=== PATIENT | female | born 1965 | race Caucasian/White ===

== ENCOUNTER 2020-01-19 14:51 | Outpatient (REF) | payer OTHER, SELFPAY ==
[2020-01-25 21:37] LABS: HPV mRNA E6/E7 Not Detected (Not Detected)
== END 2020-01-19 14:52 | disposition home or self-care (01) ==
LOC: HO.LNP 14:51
PROVIDERS: PCP Internal Medicine; Referring Provider Internal Medicine; Visit Provider Obstetrics & Gynecology
DX: Z01.419 Encounter for gynecological examination (general) (routine) without abnormal findings (principal); Z11.51 Encounter for screening for human papillomavirus (HPV); R87.810 Cervical high risk human papillomavirus (HPV) DNA test positive
CPT/HCPCS: 87624; 87625; 88142

== ENCOUNTER 2020-01-19 17:53 | Outpatient (REF) | payer OTHER, SELFPAY | END 2020-01-19 17:54 | disposition home or self-care (01) | LOC: HO.LNP 17:53 | PROVIDERS: Visit Provider Obstetrics & Gynecology | DX: Z13.89 Encounter for screening for other disorder (principal) ==

== ENCOUNTER 2020-02-03 11:41 | Outpatient (REF) | payer OTHER, SELFPAY ==
--- NOTE | 2020-02-03 11:47 | MM_ITS ---
EXAMINATION: MM SCREENING DIGITAL BREAST TOMOSYNTHESIS, BILATERAL CLINICAL INFORMATION: Screening. Asymptomatic. The lifetime risk of breast cancer based on the Tyrer-Cuzick Model is 9%. COMPARISON: Mammography: 02/26/2018, 12/14/2015, 01/20/2013 TECHNIQUE: Digital breast tomosynthesis is performed in both the craniocaudal and mediolateral oblique views along with computer-aided detection (CAD). Synthesized 2D images are generated from the tomosynthesis. FINDINGS: There are scattered areas of fibroglandular density (ACR BI-RADS breast composition Category b). Breast tissue composition borders on heterogeneously dense. The right breast shows no interval mass or architectural abnormality or developing density. Neither breast shows abnormal calcifications. The bilateral axilla and skin contours are unremarkable. The left MLO view has small asymmetric density lower quadrant, 6.3 cm from the nipple. There is no correlate on CC view. Patient will be recalled for additional imaging. MM/MM tomosynthesis screening BI IMPRESSION: 1. Left: Small asymmetric density lower quadrant on MLO view. 2. Right: No mammographic evidence of malignancy. ASSESSMENT: BI-RADS 0: Incomplete - Need Additional Imaging Evaluation RECOMMENDATION: 1. Additional views of the left breast (spot MLO, standard ML). 2. Targeted ultrasound if warranted after review of the additional views. 3. Radiology department staff will contact the patient for additional imaging. This patient's information was entered into a reminder system with a target due date for their next mammogram.
== END 2020-02-03 11:42 | disposition home or self-care (01) ==
LOC: HO.MAMMO 11:41
PROVIDERS: Visit Provider Obstetrics & Gynecology
DX: Z12.31 Encounter for screening mammogram for malignant neoplasm of breast (principal)
CPT/HCPCS: 77063; 77067

== ENCOUNTER 2020-02-10 13:27 | Outpatient (REF) | payer OTHER, SELFPAY ==
--- NOTE | 2020-02-10 13:31 | MM_ITS ---
EXAMINATION: MM DIAGNOSTIC DIGITAL BREAST TOMOSYNTHESIS, LEFT US BREAST TARGETED, LEFT CLINICAL INFORMATION: Density deep inferior aspect of the left breast. COMPARISON: Mammography: 02/03/2020 and cases dating back to 12/05/2011. TECHNIQUE: Digital breast tomosynthesis is performed. 2D images are generated from the tomosynthesis. The following views are obtained: Spot compression mediolateral oblique and 90 degree mediolateral views of the left breast. Targeted ultrasound inferior aspect of the left breast. FINDINGS: The breasts are heterogeneously dense, which may obscure small masses (ACR BI-RADS breast composition Category c). Additional views show no significant mass, architectural abnormality, or abnormal calcifications. Targeted ultrasound evaluation inferior aspect of the left breast did not demonstrate any abnormal cystic or solid mass. No region of abnormal distal sound shadowing. Results are discussed with the patient at time of visit. MM/MM tomosynthesis added views L IMPRESSION: No mammographic or ultrasound findings to suggest malignancy of the left breast. ASSESSMENT: BI-RADS 1: Negative RECOMMENDATION: Routine annual mammography screening due in 12 months. This patient's information was entered into a reminder system with a target due date for their next mammogram.
== END 2020-02-10 13:28 | disposition home or self-care (01) ==
LOC: HO.MAMMO 13:27
PROVIDERS: Visit Provider Obstetrics & Gynecology
DX: R92.8 Other abnormal and inconclusive findings on diagnostic imaging of breast (principal)
CPT/HCPCS: 76641; 77061; 77065

== ENCOUNTER 2020-02-15 08:43 | Outpatient (REF) | payer OTHER, SELFPAY | END 2020-02-15 08:44 | disposition home or self-care (01) | LOC: HO.LNP 08:43 | PROVIDERS: Visit Provider Obstetrics & Gynecology | DX: Z30.432 Encounter for removal of intrauterine contraceptive device (principal); A42.9 Actinomycosis, unspecified | CPT/HCPCS: 87071; 87073; 87185; 87205 ==

== ENCOUNTER 2020-02-21 16:01 | Outpatient (REF) | payer OTHER, SELFPAY | END 2020-02-21 16:02 | disposition home or self-care (01) | LOC: HO.LAB 16:01 | PROVIDERS: Visit Provider Internal Medicine | DX: Z20.828 Contact with and (suspected) exposure to other viral communicable diseases (principal) | CPT/HCPCS: C9803; U0003 ==

== ENCOUNTER 2020-02-23 14:24 | Outpatient (REF) | payer OTHER, SELFPAY ==
--- NOTE | 2020-02-23 | XR_ITS ---
EXAMINATION: BILATERAL KNEE RADIOGRAPHS. CLINICAL INFORMATION: Knee pain after running. COMPARISON: Hip radiograph's on 12/18/2009 TECHNIQUE: AP lateral and oblique views of each knee. FINDINGS: Right knee: The bones are normally mineralized. No acute fracture or dislocation identified. No suprapatellar effusion. There is trace tricompartmental degenerative change with marginal osteophyte formation. No suspicious osseous lesions. Left knee: The bones are normally mineralized. No acute fracture or dislocation identified. No suprapatellar effusion. There is trace tricompartmental degenerative change with marginal osteophyte formation. No suspicious osseous lesions. XR/XR knee RT 4V IMPRESSION: No evidence of acute fracture or dislocation. Mild bilateral degenerative changes.
--- NOTE | 2020-02-23 | XR_ITS ---
EXAMINATION: BILATERAL KNEE RADIOGRAPHS. CLINICAL INFORMATION: Knee pain after running. COMPARISON: Hip radiograph's on 12/18/2009 TECHNIQUE: AP lateral and oblique views of each knee. FINDINGS: Right knee: The bones are normally mineralized. No acute fracture or dislocation identified. No suprapatellar effusion. There is trace tricompartmental degenerative change with marginal osteophyte formation. No suspicious osseous lesions. Left knee: The bones are normally mineralized. No acute fracture or dislocation identified. No suprapatellar effusion. There is trace tricompartmental degenerative change with marginal osteophyte formation. No suspicious osseous lesions. XR/XR knee LT 4V IMPRESSION: No evidence of acute fracture or dislocation. Mild bilateral degenerative changes.
--- NOTE | 2020-02-23 15:03 | US_ITS ---
EXAMINATION: ULTRASOUND OF THE PELVIS CLINICAL INFORMATION: Pelvic and perineal pain. Recent IUD removal. COMPARISON: 04/26/2010. TECHNIQUE: Transabdominal and transvaginal pelvic ultrasound. A transvaginal study was performed in addition to the transabdominal study which did not yield an adequate examination of the uterus and ovaries due to superimposed distended gas-filled loops of bowel. FINDINGS: The uterus is normal in size and appearance, measuring 7.7 x 3.6 x 5.1 cm longitudinally, anteroposteriorly and transversely. The endometrial stripe thickness is normal, measuring 1.1 cm in thickness. No focal myometrial mass is seen. Nabothian cysts noted at the cervix. The ovaries bilaterally are visualized and appear normal, with the right ovary measuring 1.7 x 1.2 x 1.7 cm and the left ovary measuring 2.5 x 1.5 x 2 cm. No adnexal mass or free fluid collection seen. US/US pelvic complete IMPRESSION: Somewhat prominent endometrium may be correlated with phase of cycle. Otherwise no focal abnormality identified.
--- NOTE | 2020-02-23 15:03 | US_ITS ---
EXAMINATION: ULTRASOUND OF THE PELVIS CLINICAL INFORMATION: Pelvic and perineal pain. Recent IUD removal. COMPARISON: 04/26/2010. TECHNIQUE: Transabdominal and transvaginal pelvic ultrasound. A transvaginal study was performed in addition to the transabdominal study which did not yield an adequate examination of the uterus and ovaries due to superimposed distended gas-filled loops of bowel. FINDINGS: The uterus is normal in size and appearance, measuring 7.7 x 3.6 x 5.1 cm longitudinally, anteroposteriorly and transversely. The endometrial stripe thickness is normal, measuring 1.1 cm in thickness. No focal myometrial mass is seen. Nabothian cysts noted at the cervix. The ovaries bilaterally are visualized and appear normal, with the right ovary measuring 1.7 x 1.2 x 1.7 cm and the left ovary measuring 2.5 x 1.5 x 2 cm. No adnexal mass or free fluid collection seen. US/US transvaginal IMPRESSION: Somewhat prominent endometrium may be correlated with phase of cycle. Otherwise no focal abnormality identified.
== END 2020-02-23 14:25 | disposition home or self-care (01) ==
LOC: HO.HMGCX 14:24
PROVIDERS: Referring Provider Physician Assistant; Visit Provider Obstetrics & Gynecology
DX: M25.562 Pain in left knee (principal); M25.561 Pain in right knee; R10.2 Pelvic and perineal pain; A42.9 Actinomycosis, unspecified
CPT/HCPCS: 73564; 76830; 76856

== ENCOUNTER → 2020-03-05 14:36 | Outpatient (BNVA) | payer OTHER, SELFPAY | PROVIDERS: Visit Provider Advanced Practice Midwife | DX: Z76.89 Persons encountering health services in other specified circumstances (principal) ==

== ENCOUNTER → 2020-03-09 12:02 | Outpatient (BNVA) | payer OTHER, SELFPAY | PROVIDERS: Visit Provider Nurse Practitioner Family | DX: Z76.89 Persons encountering health services in other specified circumstances (principal) ==

== ENCOUNTER → 2020-05-11 08:28 | Outpatient (REF) | payer OTHER, SELFPAY ==
--- NOTE | 2020-05-11 08:30 | CA_ITS ---
Acquisition Time: 2020-05-11 08:42:22 Total Exercise Time: 00:10:00 Test Indications: Abnormal ECG Medications: SEE CHART Protocol: MEGAN Max HR: 166 BPM 98% of Pred: 168 BPM Max BP: 138/068 mmHG Max Work Load: 11.7 METS Exercise stress test with exercise 10 min of Megan protocol, without anginal symptoms, with isolated PVC, with normotensive response to exercise, without EKG changes meeting criteria for ischemia. Test reviewed with Dr Valdivia. Referred By: Savanna Dugan Overread By: REVA SIERRA
== END ==
LOC: HO.CARD 08:28
PROVIDERS: Visit Provider Physician Assistant
DX: R00.2 Palpitations (principal)
CPT/HCPCS: 93017

== ENCOUNTER → 2020-05-14 07:19 | Outpatient (REF) | payer OTHER, SELFPAY ==
--- NOTE | 2020-05-14 07:23 | CA_ITS ---
Transthoracic Echocardiogram Patient (Last, First, Middle): Jazz Mcfarlane Marie Gender: Female Date of : 1965 Age: 54 Procedure Date: 05/14/2020 Procedure Type: Transthoracic Echocardiogram Location: OP Height: 154.94 cm Weight: 68.04 kg BSA: 1.67 m2 Heart Rate: bpm BP: 115 / 60 mmHg [employer] Et[employer] Developer: SCOT Referring MD: Savanna MARTÍNEZ Symptoms: PALPITATIONS Study Quality: Fair ECG Rhythm: Sinus Conclusions: - The left ventricular systolic function is normal. The visually estimated ejection fraction is between 55-60%. - No obvious valvular pathology seen on this study. Findings Left Ventricle Normal left ventricular cavity size. There is normal left ventricular wall thickness. The left ventricular systolic function is normal. The visually estimated ejection fraction is between 55-60%. There is no evidence of regional wall motion abnormalities. Diastolic function is normal for age. Right Ventricle Normal right ventricular cavity size and systolic function. Atria Both atria are normal in size. Aortic Valve There is a normal trileaflet aortic valve. There is no aortic valve stenosis. There is no aortic valve regurgitation. Mitral Valve The mitral valve appears normal. There is trace mitral valve regurgitation. There is no mitral valve stenosis. Pulmonic Valve The pulmonic valve was not well visualized. Tricuspid Valve There is trace tricuspid valve regurgitation. The pulmonary artery systolic pressure is normal. Great Vessels The aortic annulus, sinuses of valsalva, and asc aorta are normal in size. Venous The inferior vena cava is normal in size and collapses greater than 50% with inspiration. Pericardium/Pleural There is no evidence of pericardial effusion. Prior Study Comparison No significant change compared to prior study dated: 04/16/2007. Recommendations, Care & Conclusions No obvious valvular pathology seen on this study. Measurements 2D Linear Measurements IVSd: 0.77 0.6-0.9/0.6-1.0 cm LVIDd: 4.65 3.9-5.3/4.2-5.9 cm LVIDd Index: 2.78 2.4-3.2/2.2-3.1 cm/m2 LVIDs: 2.89 2.0-3.6 cm LVPWd: 0.75 0.7-1.1 cm Ao Root: 3.00 2.1-3.5 cm LA Diam: 3.40 2.7-3.8/3.0-4.0 cm LAIDs Index: 2.04 1.5-2.3 cm/m2 LV Mass: 140.31 67-162/88-224 g LV Mass Index: 84.02 43-95/49-115 g/m2 LVOT Diam: 2.00 3.0+(-)1.3 cm 2D Systolic Function EF 4C: 56.40 >55% EF 2C: 63.50 >55% EF BiP: 60.10 >55% Mitral Valve MV Pk E: 0.94 MV PK A: 0.61 MV Decel Time: 269.00 E/A: 1.60 E'Lateral: 11.00 E'Medial: 11.60 E/E' Med: 8.10 E/E' Lat: 8.60 PHT: 79.00 MVA PHT: 2.78 Decel Bladen: 3.50 Aortic Valve AoV Pk Alejandro: 1.24 AoV Mn Alejandro: 0.86 AoV VTI: 0.31 AoV Pk Grad: 6.00 Aov Mn Grad: 3.00 ALFONSO Cont.VTI: 2.65 LVOT LVOT Pk Alejandro: 1.10 LVOT Mn Aljeandro: 0.69 LVOT VTI: 0.26 LVOT Pk Grad: 5.00 LVOT Mn Grad: 2.00 LVOT Diam: 2.00 LVOT Area: 3.14 Diastolic Function MV Pk E: 0.94 MV Pk A: 0.61 E/A: 1.60 E'Medial: 11.60 E/E' Med: 8.10 E' Laterial: 11.00 E/E' Lat: 8.60 Tricuspid Valve TR Pk Alejandro: 2.01 TR Pk Grad: 16.00 RA Press: 3.00 RVSP: 19.00 Great Vessels Aorta Ao Root-2D: 3.00 2.0-3.7 cm Ao Asc: 3.00 2.1-3.4 cm Ao Arch: 2.60 Updated in Other Vendor System with Status of Final Ezekiel Valdivia MD electronically signed on 05/15/2020 3:22:16 PM with status of Final
== END ==
LOC: HO.CARD 07:19
PROVIDERS: Visit Provider Physician Assistant
DX: R00.2 Palpitations (principal)
CPT/HCPCS: 93306

== ENCOUNTER 2020-05-18 06:55 | Day surgery (SDC) | payer OTHER, SELFPAY ==
--- NOTE | 2020-05-16 14:31 | P.CONAN_ITS ---
Documented by User: Constanza An 05/16/20 14:40 HPI - Anesthesia Eval Consult details Narrative: 54yo F for Colonoscopy PMFSH Active Problems Active Problems: All Active Problems (Updated 05/14/20 @ 12:49 by Aparna Walker) Abnormality of left breast on screening mammogram (Acute) Thickened endometrium (Acute) Past Medical History Medical History History of LEEP (loop electrosurgical excision procedure) of cervix complicating History of melanoma Hx of cardiac arrhythmia Remove/insert IUD Family History Family History Father Stroke Pulmonary fibrosis Mother Stroke Heart attack Surgical History Surgical History History of surgery on wrist Social History Social History Are you a primary housekeeper caregiver to a significant other at home: No Do you presently have visiting nurse or other home services: No Alcohol intake: current Alcohol intake frequency: a few times a month Alcohol type: beer and wine Smoking Status: Former smoker Smoked in Last 30 Days: No Smoking Quit Date: 30 years ago Use of substances other than those prescribed or required for medical reasons: No Advance Directives: No Advance Directives Information Provided: Yes Sexual orientation: Straight/Heterosexual Gender identity: female Meds Allergies Allergy/AdvReac Type Severity Reaction Status Date / Time No Known Allergies Allergy Verified 05/14/20 12:33 Home Medications Medication Instructions Recorded Confirmed Last Taken Type levonorgestrel 20 mcg/24 hours (6 INTRAUTERINE 01/19/20 03/09/20 Unknown History yrs) 52 mg intrauterine device fluticasone propionate 1 spray INTRANASAL DAILY 05/14/20 05/14/20 Unknown History Exam Exam Date and Time: May 16, 2020 143 Narrative Narrative: EKG 05/07/20 NSR with SA Exercise Stress 05/11/20 Protocol: HANY Max HR: 166 BPM 98% of Pred: 168 BPM Max BP: 138/068 mmHG Max Work Load: 11.7 METS Exercise stress test with exercise 10 min of Hany protocol, without anginal symptoms, with isolated PVC, with normotensive response to exercise, without EKG changes meeting criteria for ischemia. Test reviewed with Dr Valdivia. ECHO 05/14/20 Conclusions: - The left ventricular systolic function is normal. The visually estimated ejection fraction is between 55-60%. - No obvious valvular pathology seen on this study. Assessment and Plan Assessment Anesthesia Assessment: Chart Reviewed Documented by User: Peg Taylor 05/18/20 07:49 [facility] Past Medical History Medical History History of LEEP (loop electrosurgical excision procedure) of cervix complicating History of melanoma Hx of cardiac arrhythmia Remove/insert IUD Family History Family History Father Stroke Pulmonary fibrosis Mother Stroke Heart attack Surgical History Surgical History History of surgery on wrist Social History Social History Are you a primary housekeeper caregiver to a significant other at home: No Do you presently have visiting nurse or other home services: No Alcohol intake: current Alcohol intake frequency: a few times a month Alcohol type: beer and wine Smoking Status: Former smoker Smoked in Last 30 Days: No Smoking Quit Date: 30 years ago Use of substances other than those prescribed or required for medical reasons: No Advance Directives: No Advance Directives Information Provided: Yes Sexual orientation: Straight/Heterosexual Gender identity: female Meds Allergies Allergy/AdvReac Type Severity Reaction Status Date / Time No Known Allergies Allergy Verified 05/14/20 12:33 Home Medications Medication Instructions Recorded Confirmed Last Taken Type levonorgestrel 20 mcg/24 hours (6 INTRAUTERINE 01/19/20 03/09/20 Unknown History yrs) 52 mg intrauterine device fluticasone propionate 1 spray INTRANASAL DAILY 05/14/20 05/14/20 Unknown History Exam Airway Mallampati Class: II TM Dist: >3cm Neck ROM: Full Assessment and Plan Assessment Anesthesia Assessment: Anesthesia Plan Discussed and Chart Reviewed Final Anesthetic Review NPO: Yes ASA Class: II Final Preanesthetic Review: No Changes in Pt Med Stat, Meds/Allgs Chart Reviewed, Consent Obtained/Reviewed and Anes Risks/Benef Reviewed Patient Risk: Low Procedure Risk: Low Assessment/Block/Sedation in SS: Assess/Block/Sedation-SS Anesthetic Plan Anesthetic Plan: MAC: and Regional Block
[2020-05-18 07:11] VITALS: BMI 27.8
--- NOTE | 2020-05-18 07:42 | P.OP_ITS ---
Operative Note Operative Note Date of Service: 05/18/20 Narrative: Pre-op diagnosis: Colon cancer screening Post-op diagnosis: other (colon polyps, diverticulosis) Procedure: COLONOSCOPY TILL CECUM WITH BIOPSY AND SNARE POLYPECTOMY Consent: Indications for the procedure and potential complications of bleeding, perforation, reaction to medications and missed diagnosis were discussed with the patient and informed consent was obtained. Instrument: Olympus PCF H 190 L variable stiffness pediatric colonoscope Monitoring: Vital signs and clinical assessment, intermittent blood pressure monitoring, continuous EKG monitoring, Pulse oximetry and Carbon Dioxide monitoring were done throughout the procedure. Colon withdrawl time was 21 minutes. Procedure: The patient was placed in the left lateral decubitis position and pre-procedure medications were administered. After a digital rectal examination of the ano-rectum, the video colonoscope was inserted into the rectum and advanced through the colon to the cecum. The colonoscope was slowly withdrawn in a retrograde panoramic fashion and the colon mucosa was carefully examined including a retroflexed view of the rectum. Findings and interventions are described below. Procedure Difficulty: Without difficulty Findings: Terminal Ileum: Not evaluated Cecum: Normal Ascending Colon: A 4-5 mm diminutive appearing polyp in distal AC removed with a cold bx. Transverse Colon: A 1.5 to 2 cms sessile polyp removed with a hot snare. Descending Colon: Moderate diverticulosis Sigmoid Colon: Moderate diverticulosis Rectum: Normal Ano-rectum: Normal Colon preparation: Excellent Impression and Post Procedure Diagnosis: Colonoscopy Findings: Two small to medium sized polyps removed Moderate diverticulosis seen in the left colon Plan: Await pathology results Patient has an appointment on 06/07/20 in the GI Clinic with Fidelia Lockett FNP- [facility]. Repeat Colonoscopy interval based on path results - in 3 years if polyps are adenomatous and 10 years if polyps are hyperplastic. Above findings were reviewed with the patient and colon polyps and diverticulosis handouts were given in the discharge area Surgeon: Kael Gupta MD Anesthesia: MAC (Dr Taylor) Estimated blood loss (mL): 0 Pathology: other (A. AC polyp x 1, B. TC polyp x 1) Condition: stable Disposition: PACU
--- NOTE | 2020-05-18 07:42 | MHC.SHP ---
Pre-Procedural Eval Section A The patient is an INPATIENT: No The History & Physical has been completed within 30 days and I have reviewed it.: No Section B Chief Complaint: screening Details of Present Illness: colon screen Relevant Family History (Specify if Yes): No Relevant Social History: None Present Medications: see Short Stay Collaborative assessment Medical History: Significant History (History of LEEP (loop electrosurgical excision procedure) of cervix complicating History of melanoma Hx of cardiac arrhythmia) History of Previous Operations: Relevant previous surgery/procedure and date(s) (wrist surgery) Allergies: Allergies Allergy/AdvReac Type Severity Reaction Status Date / Time No Known Allergies Allergy Verified 05/14/20 12:33 Review of Systems Sugical H&P ROS: Negative: Constitution, Cardiovascular, Respiratory and Gastrointestinal Exam Surgical H&P Exam: Normal: Heart, Normal: Lungs, Normal: Extremities and Normal: Abdomen Plan Diagnosis/Plan: Unchanged I have reviewed the history and physical and performed a pertinent physical examination on my patient. No changes have occurred unless specified.
[2020-05-18 07:43] VITALS: BP 114/55; PULSE 57; RESP 16; TEMP 36.2; O2SAT 96
[2020-05-18] MEDS: Lactated Ringers 1,000 ML 100 ML IVCONT (07:52)
[2020-05-18 08:38] VITALS: BP 95/56; PULSE 65; RESP 16; TEMP 36.4; O2SAT 97
[2020-05-18 08:53] VITALS: BP 102/60; PULSE 51; RESP 16; TEMP 36.4; O2SAT 99
== END 2020-05-18 09:20 ==
LOC: HO.SSS 06:56
PROVIDERS: PCP Physician Assistant; Visit Provider Internal Medicine Gastroenterology
PROC: 0DJD8ZZ Inspection of Lower Intestinal Tract, Via Natural or Artificial Opening Endoscopic (ICD-10-PCS; CPT 45378; principal; 2020-05-18 08:00)
DX: Z12.11 Encounter for screening for malignant neoplasm of colon (principal); D12.2 Benign neoplasm of ascending colon; D12.3 Benign neoplasm of transverse colon; K57.30 Diverticulosis of large intestine without perforation or abscess without bleeding
CPT/HCPCS: 45380; 45385; 88305

== ENCOUNTER → 2020-06-07 13:45 | Outpatient (BNVA) | payer OTHER, SELFPAY | PROVIDERS: PCP Physician Assistant; Visit Provider Nurse Practitioner Family ==

== ENCOUNTER → 2020-07-19 14:17 | Outpatient (BNVA) | payer OTHER, SELFPAY | PROVIDERS: Visit Provider Internal Medicine ==

== ENCOUNTER 2020-07-20 08:38 | Outpatient (REF) | payer OTHER, SELFPAY | END 2020-07-20 08:39 | disposition home or self-care (01) | LOC: HO.LAB 08:38 | PROVIDERS: Visit Provider Obstetrics & Gynecology | DX: N93.9 Abnormal uterine and vaginal bleeding, unspecified (principal) | CPT/HCPCS: 58100; 88305 ==

== ENCOUNTER → 2020-08-03 11:11 | Outpatient (BNVA) | payer OTHER, SELFPAY | PROVIDERS: Visit Provider Obstetrics & Gynecology ==

== ENCOUNTER 2020-11-01 13:58 | Emergency (ER) | payer OTHER, SELFPAY ==
--- NOTE | ~2020-11-01 | US_ITS ---
EXAM: Pelvic Ultrasound CLINICAL INDICATION: Irregular vaginal bleeding COMPARISON: Pelvic ultrasound February 23, 2020 TECHNIQUE: The pelvis was evaluated using transabdominal and transvaginal imaging. FINDINGS: The uterus measures 9.4 x 4.2 x 5.3 cm in longitudinal by AP by transverse dimension. The uterus demonstrates mildly heterogeneous echotexture diffusely. The endometrial stripe measures 0.7 cm. The cervix measures approximately 3.5 cm in length. Small nabothian cysts are noted. The left ovary measures approximately 2.1 x 1.6 x 1.4 cm and is normal. The right ovary measures approximately 2.3 x 1.6 x 0.9 cm and is also normal. There are no abnormal adnexal masses. There is no free fluid in the pelvis. US/US pelvic and transvaginal IMPRESSION: -Endometrial stripe measures 7 mm in thickness. Correlation with menstrual cycle recommended.
[2020-11-01 14:11] VITALS: BP 110/65; PULSE 65; RESP 18; TEMP 36.6; O2SAT 98; BMI 28.1
[2020-11-01 17:17] LABS: Basophils Absolute Auto 0.1 X10*3/uL (0.0-0.2); Basophils Percent Auto 0.7 % (0-2); Eosinophils Absolute Auto 0.2 X10*3/uL (0.0-0.4); Eosinophils Percent Auto 2.5 % (0-4); Hematocrit 37.5 % (37-47); Imm Gran Abs Auto 0.03 X10*3/uL (0.00-0.03); Imm Gran Pct Auto 0.4 % (0.0-0.4); Lymphocytes Absolute Auto 2.5 X10*3/uL (1.2-4.9); Lymphocytes Percent Auto 33.1 % (20-40); MANUAL DIFF FLAG NO; Mean Corpuscular HGB Conc 34.7 g/dl (31.0-35.0); Mean Corpuscular Hemoglobin 31.3 pg (27.0-33.0); Mean Corpuscular Volume 90.1 fL (80-98); Mean Platelet Volume 9.8 fL (9.4-12.3); Monocytes Absolute Auto 0.5 X10*3/uL (0.1-1.2); Monocytes Percent Auto 6.7 % (2-11); Neutrophils Absolute Auto 4.2 X10*3/uL (2.0-8.3); Neutrophils Percent Auto 56.6 % (45-73); Platelet Count 294 X10*3/uL (160-400); Red Blood Count 4.16 X10*6/uL (4.20-5.50); Red Cell Distribution Width 12.7 % (11.0-16.0); White Blood Count 7.5 X10*3/uL (4.8-10.8)
[2020-11-01 17:31] VITALS: BP 113/73; PULSE 50; RESP 17; O2SAT 99
[2020-11-01 17:45] LABS: Anion Gap 11 (12-20); Blood Urea Nitrogen 17 mg/dL (9-16); Calcium 9.6 mg/dL (8.4-10.2); Carbon Dioxide 26 mmol/L (22-29); Chloride 106 mmol/L (96-108); Creatinine Clr Calc Pharmacy 73.4; Estimated Glomerular Filt Rate > 60; Glucose Random 91 mg/dL (60-115); Potassium 4.3 mmol/L (3.3-5.1); Sodium 139 mmol/L (135-145)
[2020-11-01] MEDS: Acetaminophen 325 MG TABLET 975 MG PO (17:48)
--- NOTE | 2020-11-01 19:39 | PC.NURSE ---
Pt to US, awaiting arrival back to dept
[2020-11-01 20:00] VITALS: BP 105/64; PULSE 49; RESP 14; O2SAT 100
[2020-11-01 20:15] VITALS: BP 97/68; PULSE 54; RESP 17; O2SAT 99
--- NOTE | 2020-11-01 20:41 | ED.FEMALEGU ---
HPI - Female Genitourinary General Chief complaint: Vaginal Bleeding Stated complaint: Vaginal bleeding Time Seen by Provider: 11/01/20 17:10 Source: patient Mode of arrival: ambulatory Limitations: no limitations History of Present Illness HPI Narrative: 55-year-old female with a past medical history of PVCs not on any medications presenting to the ED with complaints of vaginal bleeding that started Thursday worse within the past 48 hours where she has used 24 super plus tampons in the past 24 hours. She reports associated clots. She reports associated dizziness and suprapubic abdominal pain and not feeling well. She reports that initially the blood was dark and now it is bright red with clots. She reports that she had a similar episode like this in July of 2020 and she was seen by Dr. Stallworth they the OBGYN here and had an endometrial biopsy which was negative per patient. She denies any thoughts of STDs. She denies any headache, neck pain/stiffness, chest pain or shortness of breath, radiation of the abdominal pain, hematuria, abnormal vaginal discharge, diarrhea, constipation, black or bloody stools, fevers or chills or any other symptoms complaints or concerns at this time. MD elicited complaint: vaginal bleeding Onset (ago): day(s) (Three days worse within the past 2 days) Severity: similar to previous episodes Female Urogenital Radiation: Non-Radiating Quality of pain: cramping and aching Consistency: constant Vaginal discharge: none Vaginal bleeding: heavy, bright red, clots and other (One super tampon every hour) Exacerbating factors: urination and menstrual period Relieving factors: none Associated symptoms: abdominal pain and other (Dizziness) Treatment prior to arrival: none Sexual activity: No Patient : No Related Data Home Medications Medication Instructions Recorded Confirmed fluticasone propionate 50 1 spray INTRANASAL DAILY 05/14/20 07/19/20 mcg/actuation nasal spray,suspension Previous Rx's Medication Instructions Recorded medroxyprogesterone 10 mg tablet 10 mg PO DAILY 21 Days #21 tab 11/01/20 (Provera) Allergies Allergy/AdvReac Type Severity Reaction Status Date / Time No Known Allergies Allergy Verified 08/03/20 11:15 Review of Systems Review of Systems: Constitutional : No Fever, No Chills ENT/Mouth : No sore throat, No Rhinorrhea Eyes: No Eye Pain, No Redness Cardiovascular : No Chest Pain, No SOB Respiratory : No Cough, No Sputum, No Wheezing Gastrointestinal : No Nausea, No Vomiting, No Diarrhea, positive abdominal pain, Genitourinary : + irregular bleeding, No Dysuria, No Urinary Frequency, No pelvic pain, No vaginal discharge, no hematuria Musculoskeletal : No Myalgias Skin : No rash Neuro : No Weakness, No Headache Psych : No Anxiety/Panic, No Depression Heme/Lymph: No bruising, No Lymphadenopathy Endocrine : No Polyuria, No Polydipsia Yes all other systems are reviewed and are negative [facility] Past Medical History Attestation statement: The following information was validated with the patient. Medical History Diverticulosis PVCs (premature ventricular contractions) Remove/insert IUD Surgical History H/O colonoscopy History of surgery on wrist Family History Family History Father Stroke Pulmonary fibrosis Mother Stroke Heart attack Social History Social History Household Members: Significant Other Are you a primary lawn care technician to a significant other at home: No Do you presently have visiting nurse or other home services: No Alcohol intake: current Alcohol intake frequency: holidays/special occasions only Alcohol type: beer and wine Patient Tobacco Use Status: Never used Tobacco Use of substances other than those prescribed or required for medical reasons: No Advance Directives: No Advance Directives Information Provided: No Patient : No Sexual orientation: Straight/Heterosexual Gender identity: female Physical Exam Vital Signs: Vital Signs: Last Vital Signs Temp 98 F 11/01/20 14:11 Pulse 54 11/01/20 20:15 Resp 17 11/01/20 20:15 BP 97/68 11/01/20 20:15 Pulse Ox 99 11/01/20 20:15 Body Mass Index 28.1 vital signs have been reviewed as normal and appeared to be correct. Blood pressure normal. Heart rate normal. Respiration rate normal. Temperature normal. Oxygen saturation normal. Appearance: Alert. Oriented X3. No acute distress. Head: Normal external exam. Normocephalic. Atraumatic. Eyes: PERRLA. EOMI. Conjunctiva and sclera normal. Eyelids normal. ENT: Pharynx normal. Uvula midline. Moist mucous membranes. Neck: Normal inspection. Neck supple. FROM. No adenopathy. Thyroid Normal. No meningeal signs. No neck mass noted. CVS: Normal heart rate and rhythm. Heart sound normal. No murmurs noted. Pulses normal throughout. Respiratory: No respiratory distress. Painless inspiration. Breath sounds normal. No wheezes/rales/rhonchi noted. Chest nontender. No accessory muscle usage noted or decreased air movement noted. Abdomen: Soft and nontender. Bowel sounds normal in all 4 quadrants. No distention noted. No organomegaly noted. No visible injury noted. : Supervised by KARINA Chacko. Normal external appearance of urethra. No lesions/lacerations or discharge or tenderness noted. Speculum exam normal appearance/palpation of vagina normal. No abnormal vaginal discharge noted. Otherwise no vaginal erythema. No foreign bodies noted. No vaginal laceration/lesions noted. At the cervical os patient noted to have mild blood although no active bleeding/hemorrhaging. No tissue present in vagina. No vaginal mass noted. No vaginal swelling noted. No vaginal tenderness noted. Normal appearance of cervix. Normal palpation of cervix. Cervical os is closed. No abnormal cervical discharge noted. No cervical lesion/mass. No Bartholin cyst noted. No cervical motion tenderness noted. Negative chandelier sign. Normal bimanual exam. Uterine size normal. Bladder normal to palpation. Uterine consistency normal. Normal cervical palpation. Uterine mobility normal. Uterine shape normal. Normal adnexa. Normal rectovaginal exam. Back: No CVA tenderness. Full range of motion noted. Skin: Skin warm and dry. Normal skin color. Normal skin turgor. No rashes/lesions/lacerations noted. Extremities: No lower extremity edema. Extremities exhibit normal range of motion. Extremities nontender. Neuro: Oriented X 3. No motor deficit. No sensory deficit. Reflexes normal. Course Course Course Narrative: 55-year-old female with a past medical history of PVCs not on any medications presenting to the ED with complaints of vaginal bleeding that started Thursday worse within the past 48 hours where she has used 24 super plus tampons in the past 24 hours. She reports associated clots. She reports associated dizziness and suprapubic abdominal pain and not feeling well. She reports that initially the blood was dark and now it is bright red with clots. She reports that she had a similar episode like this in July of 2020 and she was seen by Dr. Basim valadez OBGYN here and had an endometrial biopsy which was negative per patient. She denies any thoughts of STDs. Labs obtained and all within normal limits. Ultrasound revealed endometrial stripe measuring 7 mm in thickness otherwise no acute processes were noted. Therefore consulted with Dr. Bib Bryant OBGYN and he reported as long as the patient does not have any contraindications to progesterone we can start her on progesterone 10 mg daily for 3 weeks and she needs to follow up with them [facility] therefore explained this to the patient she denies any history of cancer any liver disease or any hypercoagulation/blood clots in the past and she is not on any medications. Therefore it is safe to start progesterone at this time. Patient understands agrees with this plan. MDM - Female Genitourinary Medical Records Attestation: I reviewed the patient's medical records. Lab Data Attestation: I reviewed the patient's lab results. Result diagrams: 11/01/20 17:08 11/01/20 17:08 Labs: Lab Results 11/01/20 11/01/20 Range/Units 17:08 17:08 WBC 7.5 (4.8-10.8) X10*3/uL RBC 4.16 L (4.20-5.50) X10*6/uL Hgb 13.0 (12.0-16.0) g/dl Hct 37.5 (37-47) % MCV 90.1 (80-98) fL MCH 31.3 (27.0-33.0) pg MCHC 34.7 (31.0-35.0) g/dl RDW 12.7 (11.0-16.0) % Plt Count 294 (160-400) X10*3/uL MPV 9.8 (9.4-12.3) fL Immature Gran % (Auto) 0.4 (0.0-0.4) % Neut % (Auto) 56.6 (45-73) % Lymph % (Auto) 33.1 (20-40) % Wallace % (Auto) 6.7 (2-11) % Eos % (Auto) 2.5 (0-4) % Baso % (Auto) 0.7 (0-2) % Lymph # (Auto) 2.5 (1.2-4.9) X10*3/uL Wallace # (Auto) 0.5 (0.1-1.2) X10*3/uL Eos # (Auto) 0.2 (0.0-0.4) X10*3/uL Baso # (Auto) 0.1 (0.0-0.2) X10*3/uL Abs Immat Gran (auto) 0.03 (0.00-0.03) X10*3/uL Absolute Neuts (auto) 4.2 (2.0-8.3) X10*3/uL Absolute Nucleated RBC 0.000 (0.0-0.012) X10*3/uL Nucleated RBC % (auto) 0.0 (0.0-0.2) /100WBC Sodium 139 (135-145) mmol/L Potassium 4.3 (3.3-5.1) mmol/L Chloride 106 (96-108) mmol/L Carbon Dioxide 26 (22-29) mmol/L Anion Gap 11 L (12-20) BUN 17 H (9-16) mg/dL Creatinine 0.78 (0.5-1.4) mg/dL Estim Creat Clear Calc 73.4 Estimated GFR > 60 Random Glucose 91 (60-115) mg/dL Calcium 9.6 (8.4-10.2) mg/dL Discharge Plan Discharge Clinical Impression: Vaginal bleeding Patient Disposition: Home, Self-Care Instructions: Menorrhagia (ED) Prescriptions: New medroxyprogesterone [Provera] 10 mg tablet 10 mg PO DAILY 21 Days Qty: 21 RF: 0 No Action fluticasone propionate 50 mcg/actuation spray,suspension 1 spray intranasal DAILY RF: 0 Referrals: Rubens Mccartney MD [Physician] - 2 days Print Language: Ethiopian
--- NOTE | 2020-11-01 20:51 | PC.NURSE ---
This RN was escort for TANYA Gar who performed vaginal exam
== END 2020-11-01 21:18 | disposition home or self-care (01) ==
PROVIDERS: Emergency Provider Emergency Medicine Emergency Medical Services; PCP Internal Medicine
DX: N93.9 Abnormal uterine and vaginal bleeding, unspecified (principal); R42 Dizziness and giddiness; Z79.899 Other long term (current) drug therapy
CPT/HCPCS: 36415; 76830; 76856; 80048; 85025; 99285

== ENCOUNTER 2020-11-28 07:49 | Outpatient (REF) | payer OTHER, SELFPAY ==
[2020-11-28 09:17] LABS: Hemoglobin 12.4 g/dl (12.0-16.0); Mean Corpuscular HGB Conc 34.4 g/dl (31.0-35.0); Mean Corpuscular Hemoglobin 31.5 pg (27.0-33.0); Mean Corpuscular Volume 91.4 fL (80-98); Mean Platelet Volume 9.5 fL (9.4-12.3); Platelet Count 296 X10*3/uL (160-400); Red Blood Count 3.94 X10*6/uL (4.20-5.50); Red Cell Distribution Width 13.1 % (11.0-16.0); White Blood Count 5.5 X10*3/uL (4.8-10.8)
[2020-11-28 10:00] LABS: HCG Quantitative < 2 mIU/mL; TSH reflex Free T4 2.42 uIU/mL (0.32-4.0)
== END 2020-11-28 07:50 | disposition home or self-care (01) ==
LOC: HO.LAB 07:49
PROVIDERS: PCP Internal Medicine; Visit Provider Obstetrics & Gynecology
DX: N92.0 Excessive and frequent menstruation with regular cycle (principal); N93.9 Abnormal uterine and vaginal bleeding, unspecified; A42.9 Actinomycosis, unspecified
CPT/HCPCS: 36415; 84443; 84702; 85027; 87081

== ENCOUNTER → 2020-12-12 14:54 | Outpatient (BNVA) | payer OTHER, SELFPAY | PROVIDERS: Visit Provider Obstetrics & Gynecology ==

== ENCOUNTER 2021-07-05 08:27 | Outpatient (REF) | payer OTHER, SELFPAY ==
[2021-07-05 10:31] LABS: C Reactive Protein 0.24 mg/dL (< or = 0.50); Lipase 90 U/L (8-78)
[2021-07-05 10:54] LABS: TSH reflex Free T4 1.64 uIU/mL (0.32-4.0)
[2021-07-05 11:21] LABS: Folate 16.1 ng/mL (> or = 4.0); Vitamin B12 296 pg/mL (200-900)
[2021-07-06 14:17] LABS: Transglutaminase Ab IgG <1.0 U/mL; Transglutaminase IgA <1.0 U/mL
[2021-07-10 13:16] LABS: Vitamin D 25-OH, D2 <4 ng/mL; Vitamin D 25-OH, D3 29 ng/mL; Vitamin D 25-OH, Total 29 ng/mL (30-100)
== END 2021-07-05 08:28 | disposition home or self-care (01) ==
LOC: HO.LAB 08:27
PROVIDERS: PCP Internal Medicine; Referring Provider Internal Medicine; Visit Provider Nurse Practitioner Family
DX: R10.9 Unspecified abdominal pain (principal); K58.9 Irritable bowel syndrome, unspecified; R19.7 Diarrhea, unspecified; E55.9 Vitamin D deficiency, unspecified; K57.90 Diverticulosis of intestine, part unspecified, without perforation or abscess without bleeding; K58.2 Mixed irritable bowel syndrome
CPT/HCPCS: 36415; 82306; 82607; 82746; 83690; 84443; 86140; 86364

== ENCOUNTER 2021-08-16 08:20 | Outpatient (REF) | payer OTHER, SELFPAY ==
--- NOTE | ~2021-08-16 | MM_ITS ---
EXAMINATION: MM SCREENING DIGITAL BREAST TOMOSYNTHESIS, BILATERAL CLINICAL INFORMATION: Screening. Asymptomatic. The lifetime risk of breast cancer based on the Tyrer-Cuzick Model is 8%. COMPARISON: Mammography: 02/10/2020, 02/03/2020, 02/26/2018, 12/14/2015; ultrasound left breast 02/10/2020 TECHNIQUE: Digital breast tomosynthesis is performed in both the craniocaudal and mediolateral oblique views along with computer-aided detection (CAD). Synthesized 2D images are generated from the tomosynthesis. FINDINGS: There are scattered areas of fibroglandular density (ACR BI-RADS breast composition Category b). There are no significant masses, abnormal calcifications, or other abnormalities. No developing density. The axilla and skin contours are unremarkable. MM/MM tomosynthesis screening BI IMPRESSION: No mammographic evidence of malignancy. ASSESSMENT: BI-RADS 1: Negative RECOMMENDATION: Routine annual mammography screening. This patient's information was entered into a reminder system with a target due date for their next mammogram.
== END 2021-08-16 08:21 | disposition home or self-care (01) ==
LOC: HO.MAMMO 08:20
PROVIDERS: PCP Internal Medicine; Visit Provider Internal Medicine
DX: Z12.31 Encounter for screening mammogram for malignant neoplasm of breast (principal)
CPT/HCPCS: 77063; 77067

== ENCOUNTER 2021-10-18 12:14 | Outpatient (REF) | payer OTHER, SELFPAY ==
--- NOTE | ~2021-10-18 | XR_ITS ---
EXAMINATION: XR FOOT, RIGHT CLINICAL INFORMATION: Pain. COMPARISON: None. TECHNIQUE: AP, lateral, and oblique views of the right foot. FINDINGS: There is no evidence of acute fracture or dislocation of the right foot. Joint spaces are maintained. No erosive changes are evident. There is bunion formation seen involving the head of the 1st metatarsal with mild hallux valgus deformity. There are small calcaneal spurs at the sites of insertion of Achilles and plantar tendons. XR/XR foot RT min 3V IMPRESSION: No acute fracture, dislocation, or significant degenerative change is identified. Bunion formation at the head of the 1st metatarsal.
[2021-10-18 14:38] LABS: Alanine Aminotransferase 33 U/L (0-31); Albumin Level 4.4 g/dL (3.5-5.0); Alkaline Phosphatase 73 U/L (39-117); Anion Gap 13 (12-20); Aspartate Amino Transferase 25 U/L (5-31); Bilirubin Total 0.5 mg/dL (0.0-1.0); Blood Urea Nitrogen 13 mg/dL (9-16); Calcium 9.4 mg/dL (8.4-10.2); Carbon Dioxide 24 mmol/L (22-29); Chloride 109 mmol/L (96-108); Estimated Glomerular Filt Rate > 60; Glucose Random 84 mg/dL (60-115); Potassium 4.4 mmol/L (3.3-5.1); Sodium 142 mmol/L (135-145); Total Protein 7.3 g/dL (6.5-8.0)
[2021-10-18 14:50] LABS: Uric Acid 6.7 mg/dL (2.4-5.7)
[2021-10-18 14:59] LABS: Vitamin D 25-OH Total 25.7 ng/mL (>30)
[2021-10-18 15:05] LABS: Erythrocyte Sedimentation Rate 11 MM/HR (0-20)
[2021-10-18 15:10] LABS: Vitamin B12 270 pg/mL (200-900)
[2021-10-18 15:57] LABS: Folate 15.4 ng/mL (> or = 4.0)
[2021-10-21 16:41] LABS: Cyclic Citrullinated Peptide <16 UNITS
[2021-10-22 05:37] LABS: Anti DNA DS Antibody <1 IU/mL; Antibody to SS-A Antigen <1.0 NEG AI (<1.0 NEG); Antibody to SS-B Antigen <1.0 NEG AI (<1.0 NEG)
[2021-10-23 16:07] LABS: Anti Nuclear Antibody Pattern Nuclear, Homogeneous; Anti Nuclear Antibody Screen POSITIVE (NEGATIVE); Anti Nuclear Antibody Titer 1:40 titer
== END 2021-10-18 12:15 | disposition home or self-care (01) ==
LOC: HO.HMGCLDS 12:14
PROVIDERS: PCP Internal Medicine; Visit Provider Physician Assistant
DX: M79.671 Pain in right foot (principal); M25.541 Pain in joints of right hand
CPT/HCPCS: 36415; 73630; 80053; 82306; 82607; 82746; 84550; 85652; 86038; 86039; 86140; 86200; 86225; 86235

== ENCOUNTER 2021-10-19 09:01 | Outpatient (REF) | payer OTHER, SELFPAY ==
--- NOTE | ~2021-10-19 | XR_ITS ---
EXAMINATION: XR FOOT, LEFT CLINICAL INFORMATION: Pain COMPARISON: None TECHNIQUE: AP, lateral, and oblique views of the left foot. FINDINGS: No acute fracture or dislocation. Hallux valgus deformity with moderate degenerative changes of the first MTP joint, and overlying soft tissue thickening and calcification which can be seen in the setting of hydroxyapatite deposition disease. No joint effusion. Soft tissue swelling along the dorsum of the foot. XR/XR foot LT 2V IMPRESSION: Hallux valgus deformity with moderate degenerative changes of the first MTP joint, and overlying soft tissue thickening and calcification which can be seen in the setting of hydroxyapatite deposition disease. Soft tissue swelling along the dorsum of the foot.
== END 2021-10-19 09:02 | disposition home or self-care (01) ==
LOC: HO.HMGCX 09:01
PROVIDERS: Visit Provider Physician Assistant
DX: M79.672 Pain in left foot (principal)
CPT/HCPCS: 73620

== ENCOUNTER 2022-02-21 09:40 | Outpatient (REF) | payer OTHER, SELFPAY ==
[2022-02-21 10:39] LABS: Alanine Aminotransferase 34 U/L (0-31); Alkaline Phosphatase 89 U/L (39-117); Aspartate Amino Transferase 26 U/L (5-31); Bilirubin Direct 0.2 mg/dL (0.0-0.5); Bilirubin Total 0.5 mg/dL (0.0-1.0); Lipase 92 U/L (8-78); Total Protein 8.1 g/dL (6.5-8.0); Uric Acid 4.9 mg/dL (2.4-5.7)
[2022-02-21 11:16] LABS: Albumin Level 4.9 g/dL (3.5-5.0)
== END 2022-02-21 09:41 | disposition home or self-care (01) ==
LOC: HO.LAB 09:40
PROVIDERS: PCP Physician Assistant; Visit Provider Nurse Practitioner Family
DX: R10.9 Unspecified abdominal pain (principal); M10.9 Gout, unspecified
CPT/HCPCS: 36415; 80076; 83690; 84550

== ENCOUNTER 2022-04-24 08:30 | Outpatient (REF) | payer OTHER, SELFPAY ==
--- NOTE | ~2022-04-24 | US_ITS ---
EXAMINATION: US ABDOMEN COMPLETE CLINICAL INFORMATION: Elevated LFTs. COMPARISON: None TECHNIQUE: Real-time imaging of the abdominal viscera. FINDINGS: PANCREAS: Normal. ABDOMINAL AORTA: The proximal, mid, and distal segments are normal in caliber. INFERIOR VENA CAVA: Visualized portions are normal. LIVER: The liver is normal in size. The liver contour is normal. Diffuse increased echogenicity of the liver parenchyma. No focal hepatic lesion. There is no intrahepatic biliary duct dilatation seen. GALLBLADDER: Normal. The gallbladder is physiologically distended without evidence of stones, sludge, polyps, wall thickening or pericholecystic fluid. COMMON BILE DUCT: Normal in caliber measuring 0.5 cm in diameter. RIGHT KIDNEY: Normal. No hydronephrosis. No renal calculi or focal parenchymal lesions. The kidney measures 10.2 cm in maximum dimension. LEFT KIDNEY: 2 mm mid pole nonobstructing stone. No hydronephrosis or focal parenchymal lesions. The kidney measures 10.8 cm in maximum dimension. SPLEEN: Normal. The spleen measures 9.2 cm in maximum dimension. FREE FLUID: None. US/US abdomen complete IMPRESSION: 1. Diffuse increased echogenicity of the liver parenchyma, nonspecific, but can be seen in the setting of hepatic steatosis or hepatocellular disease. 2. 2 mm nonobstructing left renal stone.
== END 2022-04-24 08:31 | disposition home or self-care (01) ==
LOC: HO.HMGCX 08:30
PROVIDERS: PCP Physician Assistant; Visit Provider Physician Assistant
DX: R74.01 Elevation of levels of liver transaminase levels (principal)
CPT/HCPCS: 76700

== ENCOUNTER 2022-06-28 10:24 | Outpatient (REF) | payer OTHER, SELFPAY ==
--- NOTE | ~2022-06-28 | XR_ITS ---
EXAMINATION: XR SHOULDER, RIGHT CLINICAL INFORMATION: Right shoulder pain. COMPARISON: None available. TECHNIQUE: AP external rotation, Grashey, scapular Y, and axillary views of the right shoulder. FINDINGS: A small corticated osseous density seen along the superior margin of the bony glenoid. The glenohumeral and acromioclavicular joint spaces are unremarkable. There is no acute fracture or dislocation. The visualized right ribs are intact with the soft tissues are unremarkable. XR/XR shoulder RT min 2V IMPRESSION: Small corticated osseous density along the superior margin of the bony glenoid does not appear acute and could be degenerative in nature or secondary to old injury. No acute abnormality.
== END 2022-06-28 10:25 | disposition home or self-care (01) ==
LOC: HO.HMGCX 10:24
PROVIDERS: PCP Physician Assistant; Visit Provider Physician Assistant
DX: M25.511 Pain in right shoulder (principal)
CPT/HCPCS: 73030

== ENCOUNTER 2022-08-22 07:51 | Outpatient (REF) | payer OTHER, SELFPAY ==
[2022-08-22 10:44] LABS: Alanine Aminotransferase 25 U/L (0-31); Albumin Level 4.4 g/dL (3.5-5.0); Alkaline Phosphatase 73 U/L (39-117); Aspartate Amino Transferase 19 U/L (5-31); Bilirubin Direct 0.1 mg/dL (0.0-0.5); Bilirubin Total 0.6 mg/dL (0.0-1.0); Lipase 55 U/L (8-78); Total Protein 7.1 g/dL (6.5-8.0)
== END 2022-08-22 07:52 | disposition home or self-care (01) ==
LOC: HO.LAB 07:51
PROVIDERS: PCP Physician Assistant; Referring Provider Physician Assistant; Visit Provider Nurse Practitioner Family
DX: R10.9 Unspecified abdominal pain (principal); K57.90 Diverticulosis of intestine, part unspecified, without perforation or abscess without bleeding; K86.1 Other chronic pancreatitis; K58.9 Irritable bowel syndrome, unspecified
CPT/HCPCS: 36415; 80076; 83690

== ENCOUNTER 2022-11-05 12:12 | Outpatient (REF) | payer OTHER, SELFPAY ==
[2022-11-05 14:23] LABS: Alanine Aminotransferase 19 U/L (0-31); Albumin Level 4.4 g/dL (3.5-5.0); Alkaline Phosphatase 95 U/L (39-117); Aspartate Amino Transferase 16 U/L (5-31); Bilirubin Direct 0.3 mg/dL (0.0-0.5); Bilirubin Total 0.7 mg/dL (0.0-1.0); Gamma Glutamyl Transpeptidase 28 U/L (7-33); Lipase 40 U/L (8-78); Total Protein 7.5 g/dL (6.5-8.0)
== END 2022-11-05 12:13 | disposition home or self-care (01) ==
LOC: HO.HMGCLDS 12:12
PROVIDERS: PCP Internal Medicine; Visit Provider Nurse Practitioner Family
DX: R10.9 Unspecified abdominal pain (principal); R74.8 Abnormal levels of other serum enzymes
CPT/HCPCS: 36415; 80076; 82977; 83690

== ENCOUNTER 2023-03-27 07:52 | Outpatient (AMB) | payer OTHER, SELFPAY ==
--- NOTE | 2023-03-27 08:01 | MHC.OFFVIS ---
Intake Vital Signs 03/27/23 08:05 Height 5 ft 1 in Weight 144 lb BMI 27.2 BP 110/55 L Blood Pressure Location Lt brachial Position Sitting Pulse 62 Intake Visit Reasons: 7 month follow up Intake Note: Patient 7 month follow up for diverticulosis. Patient denies any GI issues. Patient have some lab results. Domestic Cleaner Required: No Accompanied by: Self / Same As Patient Allergies No Known Allergies Allergy (Verified 03/27/23 08:01) HPI 7 month follow up HPI Details LAST VISIT: Diverticulosis Patient reports no abdominal pain. Patient states that she is moving her bowels without any issues. Pancreatitis Last visit patient had blood work done and her lipase was elevated. Patient had mild abdominal discomfort. Currently she change her diet and eating low fat food. Mainly vegetables. Will repeat levels today. Also mildly elevated AST we will repeat liver profile today as well of IBS (irritable bowel syndrome) Patient reports that she no longer has abdominal bloating. Patient states that she changed her diet and she lost 16 lb in the last 10 months and also is feeling much better. Patient reports that she has more energy continue current diet with very little carb. Patient is eating vegetables. I will see her in 8 months, patient will be due to go for colonoscopy. Patient is agreeable to plan of care and verbalizes understanding of instructions. She was given the opportunity to ask questions and all questions answered. ? Thank you for allowing me to participate in her care Plan Orders Orders Lipase Today R10.9 - Unspecified abdominal pain Liver Panel Today R10.9 - Unspecified abdominal pain TODAY'S VISIT Patient is here today for follow-up and to discuss going for colonoscopy. Patient reports that she has been feeling well. Denies any dyspepsia, dysphagia or odynophagia. Denies melena, hematochezia, unintentional weight loss or ribbon like stools. Patient reports that she has been feeling fairly well couple episodes since the last time I have seen her of abdominal pain, cramping in the lower abdomen left followed by diarrhea. Patient denies having any nausea or vomiting at that time. Unsure if this was related to what she ate or not. Patient is due to go for colonoscopy in May of 2023. Denies any issues with anesthesia in the past. No history of sleep apnea. Not on any anticoagulation medication. Patient denies any cardiac or respiratory symptoms. [facility] Medical History Diverticulosis PVCs (premature ventricular contractions) Remove/insert IUD Surgical History H/O colonoscopy History of surgery on wrist Family History Father Stroke Pulmonary fibrosis Mother Stroke Heart attack Social History Household Members: Significant Other Are you a primary companion caregiver to a significant other at home: No Do you presently have visiting nurse or other home services: No Alcohol intake: current Alcohol intake frequency: holidays/special occasions only Alcohol type: beer and wine Patient Tobacco Use Status: Never used Tobacco Sexual orientation: Straight/Heterosexual Gender identity: Female Female Reproductive History Menstrual Age of Menarche: 15 Review of Systems Const Denies weight gain and Denies weight loss ENT Reports no additional complaints, Denies dysphagia and Denies odynophagia Card Reports no additional complaints Resp Reports no additional complaints GI Denies abdominal pain, Denies belching, Denies melena, Denies bloating, Denies change in bowel habits, Denies dysphagia, Denies excessive flatus, Denies dyspepsia, Denies heartburn, Denies diarrhea, Denies loose stools, Denies nausea, Denies odynophagia and Denies vomiting Musc Reports no additional complaints Neuro Reports no additional complaints Psych Reports no additional complaints Endo Reports no additional complaints Physical Exam Vital Signs: Last Vital Signs Pulse 62 03/27/23 08:05 BP 110/55 L 03/27/23 08:05 BMI result Body Mass Index 27.2 Const General: healthy appearing, no acute distress and well developed Nutritional Appearance: well nourished Orientation/consciousness: patient oriented x3 HEENT Head: Yes normal to inspection, Yes normocephalic and Yes atraumatic Face and sinus: Yes normal facial exam Mouth: Normal oral and palatal mucosa present Throat: Yes posterior oropharynx normal, Yes tonsils normal and Yes uvula midline Eyes General: appearance normal, both eyes and all related structures Neck Neck: Yes normal visual inspection, Yes full ROM and Yes trachea midline Thyroid: Thyroid normal Resp Effort & Inspection: normal respiratory effort, able to speak in complete sentences, no tracheal deviation and symmetric chest movement Auscultation: clear to auscultation bilaterally Cardio Jugular venous distension: no JVD Rate: regular rate Heart sounds: S1 normal heart sound present, S2 normal heart sound present, no gallops and no murmurs GI Inspection: Yes normal to inspection and No distended Palpation (GI): Soft to palpation, not firm, nontender and No hepatosplenomegaly present Auscultation: normal bowel sounds General: Yes no CVA tenderness Back/Spine/Pelvis Back: no CVA tenderness Skin General skin exam: elasticity normal, turgor normal and dry skin Neuro General: patient oriented x3 Psych Appearance: grossly normal Mental Status: mental status grossly normal Speech and movement: Normal speech and movement present Affect: normal affect Attitude: cooperative Thought process: Normal thought process present Thought content: Normal thought content present Insight: Good insight present (Psych) Judgement: Good judgement present (Psych) Assessment & Plan Assessment & Plan (1) Diverticulosis: Code(s): K57.90 - Diverticulosis of intestine, part unspecified, without perforation or abscess without bleeding (2) Screen for colon cancer: Code(s): Z12.11 - Encounter for screening for malignant neoplasm of colon (3) Tubular adenoma of colon: Code(s): D12.6 - Benign neoplasm of colon, unspecified Plan Patient will be scheduled for colonoscopy. History of tubular adenoma in May of 2020 without high-grade dysplasia or carcinoma. Patient denies any ill effects from the prep in the past. No issues with anesthesia. No history of sleep apnea. Not on any anticoagulation medication. With expect before during and after prep discussed with patient. Clear liquid diet stressed day before the procedure. Will repeat lab work and ultrasound. I will see patient after the procedure, sooner on as needed basis. Patient is agreeable to this plan and verbalizes understanding of instructions. She was given the opportunity to ask questions and all questions answered. Thank you for allowing me to participate in her care Orders: Orders Liver Panel Today R10.9 - Unspecified abdominal pain US abdomen limited Today R79.89 - Other specified abnormal findings of blood chemistry Coding Level of Care Code Est Pt Level 3 (94677) Diagnoses Diverticulosis K57.90 Screen for colon cancer Z12.11 Tubular adenoma of colon D12.6 Time Spent (min) 30 Comment 20 minutes spent with patient and additional 10 minutes spent reviewing her records
[2023-03-27 08:05] VITALS: BP 110/55; PULSE 62; BMI 27.2
== END 2023-03-27 08:25 | disposition home or self-care (01) ==
PROVIDERS: Visit Provider Nurse Practitioner Family
DX: K57.90 Diverticulosis of intestine, part unspecified, without perforation or abscess without bleeding (principal); Z12.11 Encounter for screening for malignant neoplasm of colon; D12.6 Benign neoplasm of colon, unspecified
CPT/HCPCS: 99213

== ENCOUNTER → 2023-03-27 07:52 | Outpatient (BNVA) | payer OTHER, SELFPAY | PROVIDERS: Visit Provider Nurse Practitioner Family ==

== ENCOUNTER 2023-04-17 08:27 | Outpatient (REF) | payer OTHER, SELFPAY ==
--- NOTE | ~2023-04-17 | US_ITS ---
EXAMINATION: US ABDOMEN LIMITED CLINICAL INFORMATION: Elevated LFTs COMPARISON: Ultrasound abdomen complete 04/24/2022. TECHNIQUE: Real-time imaging of the right upper quadrant abdominal viscera. FINDINGS: PANCREAS: Partially visualized pancreas is unremarkable. LIVER: Liver is of normal size and shape, with mildly increased echogenicity due to hepatic steatosis. There is no intrahepatic masses or ductal dilatation The liver contour is normal. No focal hepatic lesion. There is no intrahepatic biliary duct dilatation seen. GALLBLADDER: Normal. The gallbladder is physiologically distended without evidence of stones, sludge, polyps, wall thickening or pericholecystic fluid. COMMON BILE DUCT: Normal in caliber measuring 0.59 cm in diameter. RIGHT KIDNEY: Normal. No hydronephrosis. No renal calculi or focal parenchymal lesions. The kidney measures 10.2 cm in maximum dimension. FREE FLUID: None. US/US abdomen limited IMPRESSION: Mild hepatic steatosis
== END 2023-04-17 08:28 | disposition home or self-care (01) ==
LOC: HO.HMGCX 08:27
PROVIDERS: PCP Physician Assistant; Visit Provider Nurse Practitioner Family
DX: R79.89 Other specified abnormal findings of blood chemistry (principal)
CPT/HCPCS: 76705

== ENCOUNTER 2023-05-04 14:14 | Outpatient (AMB) | payer OTHER, SELFPAY ==
--- OUTSIDE RECORDS SUMMARY | 2023-05-04 14:16 | XMS_ITS | Continuity of Care Document ---
Author Name Unknown Organization [facility] [place] [address] [facility] [place] [address]- Care Team Providers Care Gamma Ray Operator Name Role Phone Jaspreet Sebastian DO Primary Care Physician [phone] Encounter 10/20/22 - 10/27/22 [facility] [address], [address] [place] [address]- Attending Physician: Yue Flores NP Admitting Physician: Yue Flores NP Referring Physician: Yue Flores NP Allergies, Adverse Reactions, Alerts No Known Medication Allergies Immunizations Given and Recorded Vaccine Date Status Refusal Reason tetanus/diphtheria/pertussis, acel(Tdap) 12/19/17 Given Medications ibuprofen 600 mg oral tablet 600 mg, 1, tablet, By Mouth, 4 times a day, PRN, with food or milk, # 30 tablet, Refills 0, Tot. Refills 0, Maintenance, Pain , Severe, 07/25/20 17:39:00 EDT, Route to Pharmacy Electronically, [facility]/pharmacy #[id number], Partial fill upon patient request if t... Start Date: 07/25/20 Status: Ordered Results Radiology Reports * Exam Date Time Procedure Performing Provider Status 10/20/22 3:57 PM MM Digital Mammo Screening Brittany Vincent; Auth (Verified) Notes: (MM Digital Mammo Screening) Reason For Exam: Z12.31 BREAST SCREENING RESULT: MM Digital Mammo Screening PROCEDURE: MM Digital Mammo Screening INDICATION: Screening for breast cancer. No known palpable abnormalities. COMPARISON: [facility] 08/16/2021, 02/10/2020, 02/03/2020, 02/26/2018. TECHNIQUE: Full-field digital CC and MLO 3D tomosynthesis images of both breasts were acquired. Computer-aided detection (CAD) was utilized in the interpretation of this study. DENSITY: The breast tissue contains scattered areas of fibroglandular density. FINDINGS: No suspicious masses, suspicious microcalcifications, or areas of architectural distortion are seen in either breast to suggest malignancy. IMPRESSION: No mammographic evidence of malignancy. RECOMMENDATION: Annual mammographic screening BI-RADS: 1 (Negative) Lay letter mailed to patient WSN: [id number] Ordering Physician: Yue Flores Dictated By: Ronald uJne MD Dictated Date/Time: 10/21/22 2:06 pm Reviewed By: Ronald June MD Signed By: Ronald June MD Signed Date/Time: 10/21/22 2:06 pm Transcribed By: MALORIE [employer] Boards Router Date/Time: 10/21/22 1:33 pm Birads: Social History Social History Type Response Smoking Status Former smoker, quit more than 30 days ago entered on: 07/25/20 Sex Patient Care team information Care Team Personnel Name: Jaspreet Sebastian DO Position: Reference Physician Member Role: PCP Address: Address: [address] [place] [address] [place] [address]- Care Team Related Persons Name: PHOENIX FRAZIER Address: [place] [address] Name: TARIQ WILLIS Address: home [address] [place] [id number]
[2023-05-04 15:09] VITALS: BP 126/70; PULSE 71; O2SAT 96; BMI 28.0
--- NOTE | 2023-05-04 15:09 | AM.OFFWIN_ITS ---
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 Patient is unable to hear from the left ear. Sx started this morning. Reports no cold symptoms PFSH Medical History Diverticulosis PVCs (premature ventricular contractions) Remove/insert IUD Surgical History H/O colonoscopy History of surgery on wrist Family History Father Stroke Pulmonary fibrosis Mother Stroke Heart attack Social History Household Members: Significant Other Are you a primary hearing care professional to a significant other at home: No Do you presently have visiting nurse or other home services: No Alcohol intake: current Alcohol intake frequency: holidays/special occasions only Alcohol type: beer and wine Patient Tobacco Use Status: Never used Tobacco Sexual orientation: Straight/Heterosexual Gender identity: Female Female Reproductive History Menstrual Age of Menarche: 15 Physical Exam Vital Signs: Last Vital Signs Pulse 71 05/04/23 15:09 BP 126/70 05/04/23 15:09 Pulse Ox 96 05/04/23 15:09 Oxygen Delivery Method Room Air 05/04/23 15:09 BMI result Body Mass Index 28.0 HEENT Other: Left ear: TM not visualized. Wax in the ear canal. Right ear: TM partially visualized. Office Procedures Cerumen Removal From which ear canal was the cerumen removed: bilateral Removal: otoscope w/curette Notes: patient tolerated procedure well [id number] Wax Removal by Spoon/Curette Assessment & Plan Assessment & Plan (1) Impacted cerumen of both ears: Code(s): H61.23 - Impacted cerumen, bilateral Plan Patient tolerated procedure well Orders: Orders AMB Cerumen Removal Today H61.23 - Impacted cerumen, bilateral Coding Level of Care Code Est Pt Level 3 (40691) Diagnoses Impacted cerumen of both ears H61.23 CPT Codes Office Procedure - CPT: 74584-Ogh Wax Removal by Spoon/Curette ([id number])
== END 2023-05-04 16:53 | disposition home or self-care (01) ==
PROVIDERS: PCP Physician Assistant; Visit Provider Internal Medicine
DX: H61.23 Impacted cerumen, bilateral (principal)
CPT/HCPCS: 69210; 99213

== ENCOUNTER 2023-07-17 09:58 | Day surgery (SDC) | payer OTHER, SELFPAY ==
--- NOTE | 2023-07-16 10:01 | HO.ANESPROP2 ---
Documented by User: Constanza An NP 07/16/23 10:03 HPI - Anesthesia Eval Consult details Narrative: 58yo F for Colonoscopy PMF Active Problems Active Problems: All Active Problems Actinomyces infection (Acute) Menorrhagia (Acute) PVCs (premature ventricular contractions) (Acute) Heart palpitations (Acute) Diverticulosis (Acute) Thickened endometrium (Acute) Past Medical History Medical History Diverticulosis PVCs (premature ventricular contractions) Remove/insert IUD Family History Family History Father Stroke Pulmonary fibrosis Mother Stroke Heart attack Surgical History Surgical History H/O colonoscopy History of surgery on wrist Social History Social History Household Members: Significant Other Are you a primary director of home care hospice to a significant other at home: No Do you presently have visiting nurse or other home services: No Alcohol intake: current Alcohol intake frequency: holidays/special occasions only Alcohol type: beer and wine Patient Tobacco Use Status: Never used Tobacco Are you DNR?: No Advance Directives: No Advance Directives Information Provided: Yes Nutrition Risks: No Nutritional Risk Sexual orientation: Straight/Heterosexual Gender identity: Female Meds Allergies Allergy/AdvReac Type Severity Reaction Status Date / Time No Known Allergies Allergy Verified 07/17/23 11:39 Home Medications ?Medication ?Instructions ?Recorded ?Confirmed ?Last Taken ?Type paroxetine HCl 10 mg tablet 10 mg PO DAILY 02/21/22 07/17/23 Unknown History celecoxib 200 mg capsule 200 mg PO DAILY 05/04/23 07/17/23 Unknown History Assessment and Plan Assessment Anesthesia Assessment: Chart Reviewed Documented by User: Meenu Pena MD 07/17/23 12:07 PMF Past Medical History Medical History Diverticulosis PVCs (premature ventricular contractions) Remove/insert IUD Family History Family History Father Stroke Pulmonary fibrosis Mother Stroke Heart attack Family history of problems with anesthesia: No Surgical History Surgical History H/O colonoscopy History of surgery on wrist History of Problems with Anesthesia: No Social History Social History Household Members: Significant Other Are you a primary director of home care hospice to a significant other at home: No Do you presently have visiting nurse or other home services: No Alcohol intake: current Alcohol intake frequency: holidays/special occasions only Alcohol type: beer and wine Patient Tobacco Use Status: Never used Tobacco Are you DNR?: No Advance Directives: No Advance Directives Information Provided: Yes Nutrition Risks: No Nutritional Risk Sexual orientation: Straight/Heterosexual Gender identity: Female Meds Allergies Allergy/AdvReac Type Severity Reaction Status Date / Time No Known Allergies Allergy Verified 07/17/23 11:39 Home Medications ?Medication ?Instructions ?Recorded ?Confirmed ?Last Taken ?Type paroxetine HCl 10 mg tablet 10 mg PO DAILY 02/21/22 07/17/23 Unknown History celecoxib 200 mg capsule 200 mg PO DAILY 05/04/23 07/17/23 Unknown History Exam Airway Mallampati Class: II (top front caps ) TM Dist: >3cm Neck ROM: Full Heart: rrr Lungs: cta Assessment and Plan Assessment Anesthesia Assessment: Anesthesia Plan Discussed Final Anesthetic Review Family History of Problems with Anesthesia: No History of Problems with Anesthesia: No NPO: Yes ASA Class: II Final Preanesthetic Review: No Changes in Pt Med Stat, Meds/Allgs Chart Reviewed and Consent Obtained/Reviewed Patient Risk: Low Procedure Risk: Low Anesthetic Plan Anesthetic Plan: MAC: Disposition: Standard PACU
[2023-07-17 11:29] VITALS: BMI 26.4
[2023-07-17] MEDS: Lactated Ringers 1,000 ML 100 ML IVCONT (11:33)
[2023-07-17 11:40] VITALS: BP 112/59; PULSE 55; RESP 18; TEMP 36.7; O2SAT 97
--- NOTE | 2023-07-17 12:59 | MHC.SHP ---
Pre-Procedural Eval Section A - 24 Hr Update-Section A only Date of Service: 07/17/23 The patient is an INPATIENT: No The patient has been examined within 24 hours of the surgical procedure. The History & Physical has been completed within 30 days and I have reviewed it.: No Section B - Complete if H&P > 30 days Chief Complaint: Surveillance for colon polyps Relevant Family History (Specify if Yes): No Relevant Social History: None Present Medications: see Short Stay Collaborative assessment Medical History: Significant History (Diverticulosis PVCs (premature ventricular contractions) Remove/insert IUD) History of Previous Operations: Relevant previous surgery/procedure and date(s) (H/O colonoscopy History of surgery on wrist) Allergies: Allergies Allergy/AdvReac Type Severity Reaction Status Date / Time No Known Allergies Allergy Verified 07/17/23 11:39 Review of Systems Sugical H&P ROS: Negative: Constitution, Cardiovascular, Respiratory and Gastrointestinal Exam Surgical H&P Exam: Normal: Heart, Normal: Lungs, Normal: Extremities and Normal: Abdomen Plan Diagnosis/Plan: Unchanged I have reviewed the history and physical and performed a pertinent physical examination on my patient. No changes have occurred unless specified. Time Spent With Patient Time: Total time managing care of this patient today ____ minutes.
--- NOTE | 2023-07-17 13:06 | P.OP_ITS ---
Operative Note Operative Note Date of Service: 07/17/23 Narrative: COLONOSCOPY TILL CECUM Pre-op diagnosis: Surveillance for colon polyps. Post-op diagnosis: Diverticulosis, hemorrhoids Endoscopist:? Kael Gupta MD Anesthesia:?MAC Consent: Indications for the procedure and potential complications of bleeding, perforation, reaction to medications and missed diagnosis were discussed with the patient and informed consent was obtained. Instrument: Olympus PCF H 190 L variable stiffness pediatric colonoscope Monitoring: Vital signs and clinical assessment, intermittent blood pressure monitoring, continuous EKG monitoring, Pulse oximetry and Carbon Dioxide monitoring were done throughout the procedure. Please see anesthesia flowsheet. Colon withdrawl time was 15 minutes. Procedure: The patient was placed in the left lateral decubitis position and pre-procedure medications were administered. After a digital rectal examination of the ano-rectum, the video colonoscope was inserted into the rectum and advanced through the colon to the cecum. The colonoscope was slowly withdrawn in a retrograde panoramic fashion and the colon mucosa was carefully examined including a retroflexed view of the rectum. Findings and interventions are described below. Procedure Difficulty: without difficulty Findings: Terminal Ileum: Not evaluated Cecum: Normal Ascending Colon: Normal Transverse Colon: Normal Descending Colon: Moderate divertiulosis Sigmoid Colon: Moderate diverticulosis Rectum: Normal Ano-rectum: Small internal hemorrhoids Colon preparation: Excellent, after some irrigation. [place] Bowel Preparation Scale Right colon; 3 Transverse colon: 3 Left colon; 3 (0 = Unprepared colon segment with mucosa not seen due to solid stool that cannot be cleared. 1 = Portion of mucosa of the colon segment seen, but other areas of the colon segment not well seen due to staining, residual stool and/or opaque liquid. 2 = Minor amount of residual staining, small fragments of stool and/or opaque liquid, but mucosa of colon segment seen well. 3 = Entire mucosa of colon segment seen well with no residual staining, small fragments of stool or opaque liquid) Impression and Post Procedure Diagnosis: Colonoscopy Findings: No polyps were detected Moderate diverticulosis seen in the left colon Moderate hemorrhoids on retroflexed exam. Plan: Pt has a FU appointment on 07/31/23 with Clarisa Lockett NP Repeat Colonoscopy in 5 years due to history of adenomatous colon polyps. Above findings were reviewed with the patient and relevant handouts were given and the discharge area.
[2023-07-17 14:00] VITALS: BP 80/50; PULSE 63; RESP 16; TEMP 36.1; O2SAT 98
[2023-07-17 14:15] VITALS: BP 105/58; PULSE 56; RESP 16; TEMP 36.1; O2SAT 100
== END 2023-07-17 15:12 | disposition home or self-care (01) ==
PROVIDERS: PCP Physician Assistant; Visit Provider Internal Medicine Gastroenterology
PROC: 0DJD8ZZ Inspection of Lower Intestinal Tract, Via Natural or Artificial Opening Endoscopic (ICD-10-PCS; CPT 45378; principal; 2023-07-17 12:40)
DX: Z12.11 Encounter for screening for malignant neoplasm of colon (principal); Z86.010 Personal history of colon polyps; K57.30 Diverticulosis of large intestine without perforation or abscess without bleeding; K64.8 Other hemorrhoids; I49.3 Ventricular premature depolarization; Z79.899 Other long term (current) drug therapy
CPT/HCPCS: 45378; J2250; J2704

== ENCOUNTER → 2023-07-17 09:58 | Outpatient (BNV) | payer OTHER, SELFPAY | PROVIDERS: PCP Physician Assistant; Visit Provider Internal Medicine Gastroenterology | DX: Z12.11 Encounter for screening for malignant neoplasm of colon (principal); Z86.010 Personal history of colon polyps; K57.30 Diverticulosis of large intestine without perforation or abscess without bleeding; K64.8 Other hemorrhoids | CPT/HCPCS: 45378 ==

== ENCOUNTER 2023-07-31 07:51 | Outpatient (AMB) | payer OTHER, SELFPAY ==
--- NOTE | 2023-07-31 07:56 | MHC.OFFVIS ---
Vital Signs 07/31/23 07:58 Height 5 ft 1 in Weight 145 lb 8.081 oz BMI 27.5 BP 105/61 Blood Pressure Location Lt brachial Position Sitting Pulse 58 Intake Visit Reasons: s/p Colon Alonso Intake Note: Jazz presents in the office as a follow up Colonoscopy. CC: no concerns just here for the results. Allergies No Known Allergies Allergy (Verified 07/31/23 07:59) HPI HPI s/p Colon Alonso: Details: LAST VISIT Diverticulosis Screen for colon cancer Tubular adenoma of colon Plan Patient will be scheduled for colonoscopy. History of tubular adenoma in May of 2020 without high-grade dysplasia or carcinoma. Patient denies any ill effects from the prep in the past. No issues with anesthesia. No history of sleep apnea. Not on any anticoagulation medication. With expect before during and after prep discussed with patient. Clear liquid diet stressed day before the procedure. Will repeat lab work and ultrasound. I will see patient after the procedure, sooner on as needed basis. Patient is agreeable to this plan and verbalizes understanding of instructions. She was given the opportunity to ask questions and all questions answered. ? Thank you for allowing me to participate in her care Orders Orders Liver Panel Today R10.9 US abdomen limited Today R79.89 COLONOSCOPY Findings: Terminal Ileum: Not evaluated Cecum: Normal Ascending Colon: Normal Transverse Colon: Normal Descending Colon: Moderate divertiulosis Sigmoid Colon: Moderate diverticulosis Rectum: Normal Ano-rectum: Small internal hemorrhoids Colon preparation: Excellent, after some irrigation. [place] Bowel Preparation Scale Right colon; 3 Transverse colon: 3 Left colon; 3 (0 = Unprepared colon segment with mucosa not seen due to solid stool that cannot be cleared. 1 = Portion of mucosa of the colon segment seen, but other areas of the colon segment not well seen due to staining, residual stool and/or opaque liquid. 2 = Minor amount of residual staining, small fragments of stool and/or opaque liquid, but mucosa of colon segment seen well. 3 = Entire mucosa of colon segment seen well with no residual staining, small fragments of stool or opaque liquid) Impression and Post Procedure Diagnosis: Colonoscopy Findings: No polyps were detected Moderate diverticulosis seen in the left colon Moderate hemorrhoids on retroflexed exam. Plan: Repeat Colonoscopy in 5 years due to history of adenomatous colon polyps. TODAY'S VISIT Patient is here today for follow-up and to discuss colonoscopy results. Patient denies any ill effects from the prep, anesthesia or procedure itself. Patient reports that she has been feeling well. Good appetite. Denies melena, hematochezia, unintentional weight loss or ribbon like stools. Patient has colonoscopy results showed no polyps. Moderate diverticulosis in the left colon and moderate hemorrhoids. Patient denies any rectal pain or discomfort. Patient is eating food that is high in fiber. Patient is taking probiotics daily and multivitamins. Patient denies any GI concerning symptoms today. [facility] Medical History PVCs (premature ventricular contractions) Diverticulosis Remove/insert IUD Surgical History H/O colonoscopy History of surgery on wrist Family History Father Stroke Pulmonary fibrosis Mother Stroke Heart attack Social History Household Members: Significant Other Are you a primary intensive care unit registered nurse to a significant other at home: No Do you presently have visiting nurse or other home services: No Alcohol intake: current Alcohol intake frequency: holidays/special occasions only Alcohol type: beer and wine Patient Tobacco Use Status: Never used Tobacco Sexual orientation: Straight/Heterosexual Gender identity: Female Female Reproductive History Menstrual Age of Menarche: 15 Review of Systems Const Denies weight gain and Denies weight loss ENT Reports no additional complaints, Denies dysphagia and Denies odynophagia Card Reports no additional complaints Resp Reports no additional complaints GI Denies abdominal pain, Denies belching, Denies melena, Denies bloating, Denies change in bowel habits, Denies dysphagia, Denies excessive flatus, Denies dyspepsia, Denies heartburn, Denies diarrhea, Denies loose stools, Denies nausea, Denies odynophagia and Denies vomiting Musc Reports no additional complaints Neuro Reports no additional complaints Psych Reports no additional complaints Endo Reports no additional complaints Physical Exam Vital Signs: Last Vital Signs Pulse 58 07/31/23 07:58 BP 105/61 07/31/23 07:58 BMI result Body Mass Index 27.5 Const General: healthy appearing, no acute distress and well developed Nutritional Appearance: well nourished Orientation/consciousness: patient oriented x3 Resp Effort & Inspection: normal respiratory effort, able to speak in complete sentences, no tracheal deviation and symmetric chest movement Auscultation: clear to auscultation bilaterally Cardio Jugular venous distension: no JVD Rate: regular rate Heart sounds: S1 normal heart sound present, S2 normal heart sound present, no gallops and no murmurs GI Inspection: Yes normal to inspection and No distended Palpation (GI): Soft to palpation, not firm, nontender and No hepatosplenomegaly present Auscultation: normal bowel sounds General: Yes no CVA tenderness Back/Spine/Pelvis Back: no CVA tenderness Skin General skin exam: elasticity normal, turgor normal and dry skin Neuro General: patient oriented x3 Psych Appearance: grossly normal Mental Status: mental status grossly normal Assessment & Plan Assessment & Plan (1) Diverticulosis: Code(s): K57.90 - Diverticulosis of intestine, part unspecified, without perforation or abscess without bleeding Category: Medical (2) Status post colonoscopy: Code(s): Z98.890 - Other specified postprocedural states (3) Internal hemorrhoids without complication: Code(s): K64.8 - Other hemorrhoids Plan Continue high-fiber diet, continue probiotics. Colonoscopy in 5 years, sooner if clinically necessary. Patient will follow-up in our office on as needed basis. Patient will call if she will have any GI concerning symptoms. She is agreeable to this plan and verbalizes understanding of instructions. She was given the opportunity to ask questions and all questions answered. Thank you for allowing me to participate in her care Coding Level of Care Code Est Pt Level 3 (93218) Diagnoses Diverticulosis K57.90 Status post colonoscopy Z98.890 Internal hemorrhoids without complication K64.8 Time Spent (min) 25 Comment 15 minutes spent with patient and additional 10 minutes spent reviewing her records
[2023-07-31 07:58] VITALS: BP 105/61; PULSE 58; BMI 27.5
== END 2023-07-31 08:31 | disposition home or self-care (01) ==
PROVIDERS: PCP Internal Medicine; Visit Provider Nurse Practitioner Family
DX: K57.90 Diverticulosis of intestine, part unspecified, without perforation or abscess without bleeding (principal); Z98.890 Other specified postprocedural states; K64.8 Other hemorrhoids
CPT/HCPCS: 99213

== ENCOUNTER → 2023-07-31 07:51 | Outpatient (BNVA) | payer OTHER, SELFPAY | PROVIDERS: PCP Internal Medicine; Visit Provider Nurse Practitioner Family ==

== ENCOUNTER 2023-11-30 07:16 | Outpatient (REF) | payer OTHER, SELFPAY ==
--- NOTE | ~2023-11-30 | MM_ITS ---
EXAMINATION: MM SCREENING DIGITAL BREAST TOMOSYNTHESIS, BILATERAL CLINICAL INFORMATION: Screening. Asymptomatic. COMPARISON: Mammography: Comparison is made with available prior examinations. TECHNIQUE: Digital breast tomosynthesis is performed in both the craniocaudal and mediolateral oblique views along with computer-aided detection (CAD). Synthesized 2D images are generated from the tomosynthesis. FINDINGS: The breasts are heterogeneously dense, which may obscure small masses (ACR BI-RADS breast composition Category c). There are no significant masses, abnormal calcifications, or other abnormalities. MM/MM tomosynthesis screening BI IMPRESSION: No mammographic evidence of malignancy. ASSESSMENT: BI-RADS BI-RADS 1 - Negative RECOMMENDATION: Routine annual mammography screening. 1 year F/U This examination should not preclude the clinical evaluation of a suspicious palpable abnormality. This patient's information was entered into a reminder system with a target due date for their next mammogram. Electronically signed by: Alissa Olson DO 12/25/2023 09:55 AM EDT
== END 2023-11-30 07:17 | disposition home or self-care (01) ==
LOC: HO.MAMMO 07:16
PROVIDERS: PCP Physician Assistant; Visit Provider Nurse Practitioner Women's Health
DX: Z12.31 Encounter for screening mammogram for malignant neoplasm of breast (principal)
CPT/HCPCS: 77063; 77067

== ENCOUNTER → 2023-11-30 07:30 | Outpatient (BNV) | payer OTHER, SELFPAY | PROVIDERS: PCP Physician Assistant; Visit Provider Internal Medicine | DX: Z12.31 Encounter for screening mammogram for malignant neoplasm of breast (principal) | CPT/HCPCS: 77063; 77067 ==

== ENCOUNTER 2025-01-19 07:28 | Outpatient (REF) | payer OTHER, SELFPAY ==
--- NOTE | ~2025-01-19 | XR_ITS ---
EXAMINATION: XR CHEST CLINICAL INFORMATION: PERSISTENT COUGH COMPARISON: None available. TECHNIQUE: PA and lateral views FINDINGS: No consolidation, pleural effusion or pneumothorax. Cardiomediastinal silhouette size is normal. Mild multilevel thoracic spondylosis. Mild degenerative changes in the shoulders with questionable focal 3 mm calcification right supraspinatus tendon region. XR/XR chest 2V IMPRESSION: No acute airspace disease. Questionable calcific tendinosis/tendinopathy, right shoulder. Electronically signed by: Asim Hurtado MD 01/19/2025 09:04 AM EDT
--- NOTE | ~2025-01-19 | MM_ITS ---
EXAMINATION: MM SCREENING DIGITAL BREAST TOMOSYNTHESIS, BILATERAL CLINICAL INFORMATION: Screening. Asymptomatic. COMPARISON: Comparison made to multiple prior, most recent November 30, 2023, and most remote January 20, 2013. TECHNIQUE: Digital breast tomosynthesis is performed in mediolateral oblique and craniocaudal views along with computer-aided detection (CAD). Synthesized 2D images are generated from the tomosynthesis. FINDINGS: BREAST COMPOSITION: The breasts are heterogeneously dense, which may obscure small masses. BILATERAL BREASTS: No significant masses, suspicious calcifications or other abnormalities are seen in either breast. MM/MM tomosynthesis screening BI IMPRESSION: BILATERAL BREASTS: Negative, no mammographic evidence of malignancy. Normal interval follow-up is recommended in 12 months. ASSESSMENT: BI-RADS: Category 1: Negative RECOMMENDATION: Routine annual mammography screening. FOLLOW-UP: 1 year F/U This examination should not preclude the clinical evaluation of a suspicious palpable abnormality. This patient's information was entered into a reminder system with a target due date for their next mammogram. Electronically signed by: Blake Uribe MD 01/22/2025 08:49 AM EDT
--- OUTSIDE RECORDS SUMMARY | 2025-01-19 07:32 | XMS_ITS | Clinical Summary ---
Author Organization [facility] Address [address] [place] [address] Phone Care Team Providers Care Dike Supervisor Name Role Phone Jaspreet Sebastian DO Primary Care Provider [phone] Social History Tobacco Use Types Packs/Day Years Used Date Smoking Tobacco: Never Assessed Education Answer Date Recorded Are you interested in more education? Not on no e 08/01/2022 Are you concerned about learning? Not on file 08/01/2022 No 08/01/2022 No 08/01/2022 Digital Access Answer Date Recorded No 09/02/2022 No 09/02/2022 Reliable internet access at home? Not on file 09/02/2022 Device with a working camera? Not on file Comments Unknown Sex and Gender Information Value Date Recorded Sex Assigned at Not on file Legal Sex Female 10:39 AM EDT Gender Identity Not on file Sexual Orientation Not on file Plan of Treatment Not on file Medical Devices Not on file [place] [address] [place] [address] HMO O O O O O O O [facility] HMO Care Teams Dike Supervisor Relationship Specialty Start Date End Date Jaspreet Sebastian DO [email or web address] PCP - General Internal Medicine 10/04/19 Additional Source Comments The information contained in this document represents components of the legal health record. It is not the complete legal health record.[facility]
--- OUTSIDE RECORDS SUMMARY | 2025-01-19 07:32 | XMS_ITS | Patient Health Record ---
Author Organization [facility] Address [address] [place] [address] Care Team Providers Care Extractor Puller Name Role Phone Darío KIM, Lizzy Primary Care Provider Unavail able Elizabeth Funez Unavailable [phone] Reason For Referral No Information Social History Tobacco Use: Social History Observation Description Date Details (start date - stop date) Former Smoker NA - NA Tobacco Use/Smoking Question Answer Notes Are you a: former smoker When did you stop smoking? 1989 Additional Findings: Tobacco Non-User Current no n-smoker Alcohol Screen Question Answer Notes Did you have a drink containing alcohol in the p ast year? Yes Points 0 Interpretation Negative Tobacco use other than smoking: Question Answer Notes Are you an other tobacco user? No Problems Problem Type SNOMED Code ICD Code Onset Dates Problem Status W/U Status Risk Notes Problem Acquired hallux valgus (35585123) Hallux valgus (acquired), left foot (M20.12) Active confirmed Problem Acquired hallux valgus (15546625) Hallux valgus (acquired), right foot (M20.11) Active confirmed Plan Of Treatment Pending Test Test Name Order Date X ray : Foot, left 3V 04/05/2018 [id number] Plate 04/05/2018 Insurance Providers Payer Name Payer Address Payer Phone Subscriber Number Group Number Insured Name Patient Relationship to Insured Coverage Start Date Coverage End Date [facility] [address] [facility] [place] [id number] Jazz Gould Self - patient is the insured Medical (General) History Medical History History ICD Code Anxiety Surgical History Surgery Date(Month/Year)
--- OUTSIDE RECORDS SUMMARY | 2025-01-19 07:32 | XMS_ITS | Data Portability ---
Author Organization [facility], Telehealth Patient Home Address [address] [place] [address] Assessment Encounter Date Assessment Date Assessment LastModified by Organization Details LastModified Time 02/20/2023 02/20/2023 Patient agreed and verbally consents to this audio and video Telehealth appt via a secure platform [email or web address] Not available 02/20/2023 10:23:20 Plan of Treatment Reminders Order Date Submit Date Provider Last Modified By Organization Details Last Modified Time Details Appointments None recorded. Lab uric acid, serum or plasma 2022 023 [facility], [place], [address], 3 10:24:12 vitamin D, 25-hydroxy , total, serum 2022 023 [facility], [place], [address], 3 10:24:13 THALIA + rf (antinucle ar antibodies + rheumatoid factor), quantitati ve, serum 2022 023 [facility], [place], [address], 3 10:24:12 vitamin B12 + folate, serum or blood 2022 023 [facility], [place], [address], 3 10:24:12 ESR (erythrocy te sedimentat ion rate), blood 2022 023 [facility], [address] [place] [address] [place], [address], 3 10:24:12 C-reactive protein, quantitati ve, serum or plasma 2022 023 [facility], [address] [place] [address] [place], [address], 3 10:24:12 ccp (cyclic citrullina indy peptide) igg, serum 2022 023 [facility], [address] [place] [address] [place], [address], 3 10:24:13 dsDNA Ab, serum 2022 023 [facility], [address] [place] [address] [place], [address], 3 10:24:12 PTH (parathyro id hormone), intact + calcium, serum or plasma 2022 023 [facility], [address] [place] [address] [place], [address], 3 10:24:[address] referral 2023 024 [facility] Cardiology Scheduling Dept, [address], [address], 4 11:38:45 orthopedic surgeon referral 2022 023 [facility], [address] [place], [address], 3 12:00:12 Procedures None recorded. Surgeries None recorded. Imaging XR, chest, 2 view 2024 025 [facility] Central Scheduling, [address] [facility], [place], [address], 5 04:15:09 exercise stress test 2023 024 [facility], [address], [address], [place], [address], 4 15:28:45 US, echocardio gram 2023 024 [facility], [address], [address], [place], [address], 4 09:10:01 XR, hand, 3 or more view 2022 023 [facility], [address] [place] [address] [place], [address], 3 08:11:04 Medication Orders prednisone 10 mg tablet 2024 025 [id number], [address] [place], [address], 5 15:40:10 Zithromax Z-Chi 250 mg tablet 2024 025 [id number], [address] [place], [address], 5 15:40:46 allopurino l 300 mg tablet 2022 024 [id number], [address] [place], [address], 4 09:31:44 paroxetine 20 mg tablet 2022 023 [id number], [address] [place], [address], 4 09:32:16 Patient TargetsNo targets recorded. Patient InstructionsNo instructions recorded. 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 [email or web address] Not Available 2022 16:24:31 06/29/19 23 06/28/2022 XR, shoul soledad, 2 or more view No observ ation record ed. [address] [place], [address], 06/30/2022 10:05:46 04/20/19 24 04/17/2023 US, abdom en + pelvi s No observ ation record ed. [address] [place], [address], 04/20/2023 10:29:18 11/24/19 24 11/23/2023 exerc ise stres s test No observ ation record ed. [email or web address] Not Available 2023 15:34:31 12/25/19 24 11/30/2023 MAMMO , scree malka, digit al, bilat eral No observ ation record ed. [email or web address] [address] [place], [address], 12/25/2023 10:13:33 06/11/19 25 03/25/2024 US, echoc ardio gram No observ ation record ed. [email or web address] [address], [address], 06/10/2024 12:10:25 Result Notes None recorded. Problems Name Problem SNOMED Code Status Onset Date Resolution Date Notes Provider Name and Address Organization Details Recorded Time Anxiety 19941614 Active 2017 Not Available [facility] 12:17:26 Ventricul ar premature beats 71147585 Active 2017 Not Available [facility] 12:17:26 Chronic vertigo 880471227883 05 Active 2019 Not Available [facility] 12:17:26 Pain of multiple joints 84241986 Active 2021 TANYA RICKS [address] [place], [address], [facility] 2 11:37:35 Bilateral foot joint pain 421655901839 57528 Active 2021 TANYA RICKS [address] [place], [address], [facility] 2 11:40:07 Pain in right foot 694294748469 107 Active 2021 TANYA RICKS [address] [place], [address], [facility] 2 16:24:59 Pain in left foot 193198507309 107 Active 2021 TANYA RICKS [address] [place], [address], [facility] 2 16:25:05 Uric acid level above reference range 13636125 Active 2021 TANYA RICKS [address] [place], [address], [facility] 2 15:38:32 Gout 37934673 Active 2021 TANYA RICKS [address] [place], [address], [facility] 2 15:38:45 Menopausa l flushing 369418974 Active 2021 TANYA RICKS [address] [place], [address], [facility] 2 15:43:27 Nausea 596483257 Active 2021 TANYA RICKS [address] [place], [address], [facility] 2 12:24:49 Chondroca lcinosis caused by calcium hydroxyap atite crystals 00114743 Active 2021 TANYA RICKS [address] [place] [address], [address], [facility] 2 14:06:53 COVID-19 067375026 Active 2021 Dasia Liz [facility] Internal [facility] 2 11:49:58 Headache 62241848 Active 2021 TANYA RICKS [address] [place] [address], [address], [facility] 2 14:10:16 Impacted cerumen of bilateral ears 813601006527 9108 Active 2021 TANYA RICKS [address] [place] [address], [address], [facility] 2 09:38:10 Liver enzymes level above reference range 167280948 Active 2021 TANYA RICKS [address] [place] [address], [address], [facility] 2 11:26:13 Acute injury of kidney 283724506982 77304 Active 2021 TANYA RICKS [address] [place] [address], [address], [facility] 2 11:28:13 Pain of right shoulder joint 108986778643 30041 Active 2022 TANYA RICKS [address] [place] [address], [address], [facility] 3 12:03:24 Pain in left thumb 376042445179 9100 Active 2022 TANYA RICKS [address] [place] [address], [address], [facility] Internal [facility] 3 10:19:10 Acute kidney injury 16157360 Active 2023 TANYA RICKS [address] [place], [address], [facility] 4 09:36:50 Atypical chest pain 219700109 Active 2023 TANYA RICKS [address] [place] [address], [address], [facility] 4 09:37:01 Cough 79782390 Active 2023 TANYA RICKS [address] [place] [address], [address], [facility] Internal [facility] 4 15:13:08 Persisten t cough 706838254 Active 2024 TANYA RICKS [address] [place] [address], [address], [facility] Internal [facility] 5 15:38:29 Problem Notes None recorded. Procedures Surgical History Date Name Laterality Status Provider Name and Address Organization Details Recorded Time 2 Cerumen Removal completed TANYA RICKS [address] [place] [address], [address], [facility] 01/24/2022 10:33:59 9 Date of Last Pap Smear completed July FRANSISCO Galeano [address] [place] [address], [address], [facility] 03/25/2019 15:07:39 Imaging Results None recorded. Procedure Notes None recorded. Medical Equipment None Reported. Allergies No known drug allergies Medications Name Sig Start Date Stop Date Status Note LastModified by Organization Details LastModified Time celecoxib 200 mg capsule TAKE 1 CAPSULE BY MOUTH EVERY DAY active Not Available Not Available No t Available cyclobenz aprine 10 mg tablet Take 1 tablet as needed by oral route at bedtime for 15 days. 11/17 completed Not Available Not Available Not Available medroxypr ogesteron e 10 mg tablet TAKE 1 TABLET BY MOUTH EVERY DAY FOR 21 DAYS FOR ABNORMAL UTERINE BLEEDING 10/18 completed Not Available Not Available Not Available prednison e 10 mg tablet 40 mg x 2 days30 mg x 2 days20 mg x 2 days10 mg x 2 days 2024 active Not Available Not Available Not Avai lable paroxetin e 10 mg tablet TAKE 1 TABLET BY MOUTH EVERY DAY active Not Available Not Available No t Available tizanidin e 4 mg tablet Take 1 tablet every day by oral route at bedtime. 12/29 completed Not Available Not Available Not Available benzonata te 200 mg capsule TAKE 1 CAPSULE BY MOUTH THREE TIMES A DAY NEEDED FOR 14 DAYS 01/13 completed Not Available Not Available Not Available meloxicam 15 mg tablet TAKE 1 TABLET BY MOUTH EVERY DAY WITH FOOD 01/16 completed Not Available Not Available Not Available Zithromax Z-Chi 250 mg tablet TAKE 2 TABLETS (500 MG) BY ORAL ROUTE ONCE DAILY FOR 1 DAY THEN 1 TABLET (250 MG) BY ORAL ROUTE ONCE DAILY FOR 4 DAYS 2024 active Not Available Not Available Not Avai lable metronida zole 500 mg tablet 04/24 completed Not Available Not Available Not Available allopurin ol 100 mg tablet TAKE 2 TABLETS BY MOUTH EVERY DAY FOR 30 DAYS 01/16 completed Not Available Not Available Not Available tramadol 50 mg tablet TAKE 1 TABLET BY MOUTH EVERY 6 HOURS NEEDED FOR 7 DAYS 01/24 completed Not Available Not Available Not Available ondansetr on 8 mg disintegr ating tablet Place 1 tablet twice a day by translin gual route for 14 days. 11/18 completed Not Available Not Available Not Available Aleve 220 mg tablet Take 1 tablet every 12 hours by oral route. 02/21 completed 4 pills every 6 hours currentl y Not Available Not Available Not Available Macrobid 100 mg capsule Take 1 capsule every 12 hours by oral route for 5 days. 05/09 completed Not Available Not Available Not Available cephalexi n 500 mg capsule Take 1 capsule 3 times a day by oral route. 03/25 completed Not Available Not Available Not Available paroxetin e 20 mg tablet TAKE 1 TABLET BY MOUTH EVERY DAY FOR 30 DAYS 11/16 completed Not Available Not Available Not Available nortripty line 10 mg capsule Take 1 capsule every day by oral route for 30 days. 02/16 completed Not Available Not Available Not Available neomycin- polymyxin -dexameth 3.5 mg/mL-10, 000 unit/mL-0 .1% eye drops INSTILL 1 DROP INTO BOTH EYES 3 TIMES A DAY FOR 1 WEEK , THEN TAPER DIRECTED 01/16 completed Not Available Not Available Not Available indometha janiya 50 mg capsule Take 1 capsule 3 times a day by oral route with meals for 14 days. 11/18 completed Not Available Not Available Not Available allopurin ol 300 mg tablet TAKE 1 TABLET BY MOUTH EVERY DAY FOR 30 DAYS 11/16 completed Not Available Not Available Not Available norethind elaina acetate 5 mg tablet TAKE 1 TABLET 3 TIMES A DAY X 2 DAYS, THEN 1 TABLET TWICE A DAY X2 DAYS, THEN 1 TABLET DAILY 10/18 completed Not Available Not Available Not Available fluocinon sebastien 0.05 % topical solution 10/18 completed Not Available Not Available Not Available polyethyl murali glycol 3350 17 gram/dose oral powder DISSOLVE 238 GRAMS DIRECTED BY MOUTH THE DAY BEFORE YOUR PROCEDUR E active Not Available Not Available No t Available fluticaso ne propionat e 50 mcg/actua tion nasal spray,monica pension SPRAY 1 SPRAY INTO EACH NOSTRIL EVERY DAY 10/18 completed Not Available Not Available Not Available betametha sone dipropion ate 0.05 % lotion APPLY TO SCALP 2 TO 3 TIMES PER WEEK NEEDED FOR SCALING active Not Available Not Available No t Available dicyclomi ne 10 mg capsule TAKE 1 CAPSULE BY MOUTH THREE TIMES A DAY 01/16 completed Not Available Not Available Not Available Laxative (bisacody l) 5 mg tablet,de layed release TAKE 4 TABLETS BY MOUTH ONCE FOR 1 DAY AT NOON BEFORE THE COLONOSC OPY active Not Available Not Available No t Available clobetaso l 0.05 % shampoo APPLY TO DRY SCALP AND LET STAND FOR 10-15 MINUTES, WASH OUT IN SHOWER, APPLY 2-3 TIMES PER WEEK active Not Available Not Available No t Available diclofena c 1 % topical gel APPLY 2 GRAMS TO THE AFFECTED AREA(S) BY TOPICAL ROUTE 4 TIMES PER DAY 01/16 completed Not Available Not Available Not Available Tobradex ST 0.3 %-0.05 % eye drops,monica pension INSTILL 1 DROP 3 TIMES A DAY INTO BOTH EYES FOR 1 WEEK 01/16 completed Not Available Not Available Not Available Flucelvax Quad (PF) 60 mcg (15 mcg x 4)/0.5 mL IM syringe 03/25 completed Not Available Not Available Not Available Flublok Quad (PF) 180 mcg (45 mcg x 4)/0.5 mL IM syringe PHARMACY ADMINIST ERED 02/16 completed Not Available Not Available Not Available Vitals Date Recorded Body height Body mass index (BMI) Body weight Heart rate Oxygen saturation Oxygen saturation in Arterial blood by Pulse oximetry Systolic And Diastolic Provider Name and Address Organization Details Last Updated DateTime 4 156.21 cm 27.4 kg/m2 96734.8 7 g 80 /min 98 % 98 % 118/72 mm[Hg] Deepali Khan [facility] 4 09:33:36 Date Recorded Body height Body mass index (BMI) Body weight Heart rate Oxygen saturation Oxygen saturation in Arterial blood by Pulse oximetry Systolic And Diastolic Provider Name and Address Organization Details Last Updated DateTime 3 156.21 cm 26.6 kg/m2 47680.7 1 g 57 /min 98 % 98 % 112/64 mm[Hg] Carmen Davies [facility] 3 11:12:15 Date Recorded Body height Body mass index (BMI) Body weight Heart rate Oxygen saturation Oxygen saturation in Arterial blood by Pulse oximetry Systolic And Diastolic Provider Name and Address Organization Details Last Updated DateTime 2 156.21 cm 27.9 kg/m2 93776.2 1 g 65 /min 97 % 97 % 116/62 mm[Hg] Yue Solares [facility] 2 11:18:26 Social History Question Answer Notes LastModified by Organizat ion Details LastModified Time Tobacco Smoking Status Former Smoker Shelly fowler [facility] 03/25/2019 14:51:26 What Was The Date Of Your Most Recent Tobacco Screening? 11/17/2023 [email or web address] Information not available 11/17/2023 How Much Tobacco Do You Smoke? 1 PPW Information not available 03/25/2019 How Many Years Have You Smoked Tobacco? 5 Information not available 03/25/2019 Sex: Unknown Functional Status Question Answer Note LastModified by Organizat ion Details LastModified Time Do you or have you ever used any other forms of tobacco or nicotine? No [email or web address] Information not available 02/21/2022 Do you or have you ever used smokeless tobacco? Never used smokeless tobacco [email or web address] Information not available 02/21/2022 Do you or have you ever used e-cigarettes or vape? Never used electronic cigarettes [email or web address] Information not available 02/21/2022 Mental Status None recorded. Family History Relationship Description Onset Age of this Age Resolved Age Notes LastModified by Organization Details LastModified Time Father Cerebrovascu lar accident 82 bleed [email or web address] Not available 09:59:09 Mother Coronary arterioscler osis 59 [email or web address] Not available 2017 09:59:36 Mother Cerebrovascu lar accident [email or web address] Not available 15:03:29 Notes:Brother passed age 45. ? unknown cause Medical History Condition Response Coronary Artery Disease N Gout N Kidney Stones N Blood Diseases N Hyperthyroidism N Blood Transfusion N Breast Cancer N Lung Disease N COPD N Depression N Hypothyroidism N Defects or Inherited Disease N Difficulty Swallowing N Anesthesia Complications N Meniere's disease N Anxiety Disorder Y Muscle, Joint, or Bone Problems Y Obesity N Vision or Eye Problems N Arthritis N Polyps N Infertility N Mental Disorder N Cancer N Stroke N Varicosities N Bladder or Kidney Problems N High Cholesterol N Liver Disease N Fibromyalgia N Headaches N Kidney Disease N Allergies/Hayfever N Heart Problems Y Hospitalizations N Thyroid Problems N GI Problems N Eating Disorder N Skin Problems Y Anemia N MRSA exposure N Constipation N Diabetes N Ovarian Cancer N Tuberculosis N Congestive Heart Failure (CHF) N Eczema Y Abuse/Domestic Violence N Diverticulitis N Asthma Y Reflux/GERD N Hepatitis N Heart Disease N Pulmonary Embolism N Chronic Ear Infections N Pre-Eclampsia N Hypertension N Chicken Pox Y Osteoporosis N Thrombophilias N Gynecological History Statement/Question Response Abnormal Pap Y Date of Last Pap Smear 04/06/2018 Current Control Method IUD Obstetrics History GPAL:G 2 P 2 0 0 0 Type Value Full Term 2 Total 2 Immunizations Vaccine Type Date Status Note Provider Nam e and Address Organization Details Recorded Time Tdap 8 completed Shelly Bucko null, [facility] 04/24/2020 13:43:14 Influenza, split virus, quadrivalent, preservative 1 completed Ginna Gencarelle null, [facility] 02/21/2022 11:03:34 COVID-19, mRNA, LNP-S, PF, 30 mcg/0.3 mL dose 1 completed Ginna Gencarelle null, [facility] 02/21/2022 11:03:34 COVID-19, mRNA, LNP-S, PF, 30 mcg/0.3 mL dose 1 completed Ginna Gencarelle null, [facility] 02/21/2022 11:03:34 COVID-19, mRNA, LNP-S, PF, 30 mcg/0.3 mL dose 1 completed Ginna Gencarelle [facility], [facility] 02/21/2022 11:03:34 Influenza, split virus, quadrivalent, preservative 8 completed Ginna Gencarelle null, [facility] 02/21/2022 11:03:34 Influenza, split virus, quadrivalent, preservative 9 completed Ginna Gencarelle [facility], [facility] 02/21/2022 11:03:34 Influenza, split virus, quadrivalent, preservative 0 completed Ginna Gencarelle [facility] 02/21/2022 11:03:34 Past Encounters Encounter ID Performer Location Encounter Start Date Encounter Closed Date Diagnosis/Indication Diagnosis SNOMED-CT Code Diagnosis ICD10 Code Diagnosis IMO Codes Diagnosis Note [id number] Jaspreet Sebastian [facility] [address] [facility],[place] [address] 08/21/2017 09:40:45 08/21/2017 16:57:02 Ventricular premature beats 99508764 I49.3 EKG in office, labs, computer was down, written Tft's, cbc, cmp Pain of sh oulder region 99234311 M25.511 discussed yoga, meditation , taking breaks at work periodical ly Pain of le ft shoulder joint 7615434669 5480095 M25.512 [id number] Jaspreet Sebastian [facility] [address] [place] [address] 12/29/2017 13:19:24 12/29/2017 16:49:57 Wound of skin 928951113 T14.8XXD sutures removed without incident [id number] Jaspreet Sebastian [facility] Internal [facility] [address] [place] [address] 03/19/2018 13:57:09 03/19/2018 16:27:43 Adult health examination 549715310 Z00.00 Z00.01 Ingrowing nail 115596508 L60.0 Loss of hair 796029379 L 65.9 Screening procedure 2012 5006 Z13.9 Pain in left foot 586109 0257 94022 M79.672 see podiatry referral [id number] Jaspreet Sebastian [address] [address] 03/25/2019 14:41:39 03/25/2019 15:30:50 Adult health examination 902293163 Z00.00 Active or passive immunization 784483499 Z23 Vitamin D deficiency 347 41711 E55.9 Panic attack 653685050 F 41.0 would like to hold off on anything for the time being, but will call if sx change or worsen Ventricula r premature beats 84625779 I49.3 Acute urin adrián tract infection 051687323 N39.0 [id number] Jaspreet Sebastian [facility] [address] [place] [address] 05/10/2019 08:54:59 05/10/2019 09:35:10 Hypercholesterolemia 70927542 E78.00 diet fish oil continue to exercise work on fiber intake avoid red meat recheck in 6 months Anxiety 05284683 F41.9 will start paroxetine , call for refill if happy with med, will fu if would like to change or increase dose Neck pain 23317483 M54.2 likely muscular [id number] Jaspreet Sebastian [facility] [address] [place] [address],[place] [address] 11/18/2019 15:17:40 11/18/2019 15:59:36 Anxiety 98285946 F41.9 will stop paxil as it is causing a lot of weight gain the patient diets and exercises but seems like it is not helping will fu in 3 months to see if she is stable off medication Ventricula r premature beats 93564885 I49.3 stable per patient Chronic vertigo 09553557 11 9105 R42 uses nortry and doing really well with it [id number] Jaspreet Sebastian DO [facility] [address] [facility],[place] [address] 02/17/2020 09:53:41 02/17/2020 11:22:21 Active or passive immunization 082775438 Z23 will set up for shingles shot Anxiety 45592233 F41.9 doing well Chronic vertigo 82910685 11 9105 R42 no longer taking notry, the patient reports Bilateral knee pain 1187 169247 7807467 M25.561 will start with XR first Sense of s ace altered 429438906 R43.1 had recent infection from IUD may be related to that causing her to smell cigarettes will try flonase and wait for her to start anbx with them [id number] Jaspreet Sebastian DO [facility] [address] [facility], m[address] [facility] [place] [address] 04/24/2020 13:41:03 04/24/2020 14:14:19 Ventricular premature beats 02523082 I49.3 has hx of palpitatio ns with no change in how they feel from day to day but with new palpitatio n out of the normal, we agreed best to work patient up Palpitations 12501997 R0 0.2 will follow up with patient after results of the work up to discuss results and next steps [id number] Jaspreet Sebastian [facility] [address] [facility], [place] [address] 10/18/2021 11:21:05 10/18/2021 14:44:24 Pain of multiple joints 14289059 M25.541 will fu with full panel rheum work up Bilateral foot joint pain 5943127122 7909199 M79.671 will fu with XR foot bilateral for baseline imaging [id number] Jaspreet Sebastian [facility] [address] [facility],[place] [address] 10/28/2021 15:22:17 10/28/2021 15:55:25 Active or passive immunization 575218049 Z23 will set up for shingles shot Adult heal th examination 061019622 Z00.00 BP is excellent Uric acid level above reference range 70173571 E79.0 will start on indomethac in Gout 17916656 M10.09 will start on indomethac in Menopausal flushing 1984 48458 N95.1 will trial paxil [id number] TANYA RICKS [facility] [address] [facility],[place] [address] 11/18/2021 13:40:01 11/19/2021 12:25:33 Gout 62890989 M10.09 improvedco ntinue on allopurino l Chondrocal cinosis caused by calcium hydroxyapatite crystals 62713459 M11.00 improved [id number] Jaspreet Sebastian [facility] [address] [facility],[place] [address] 01/24/2022 09:20:48 01/24/2022 14:28:42 Impacted cerumen of bilateral ears 6147910153 980405 H61.23 will have a lavagereso lved Bilateral foot joint pain 8755989787 5052678 M79.671 trial CBD lotion/nestor ks Chondrocal cinosis caused by calcium hydroxyapatite crystals [id number] M11.00 improved [id number] Jaspreet Sebastian [facility] [address] [facility] [address],[place] [address] 02/21/2022 11:02:36 02/21/2022 12:55:28 Anxiety 11819940 F41.1 doing well Liver enzy mes level above reference range [id number] R74.01 ? per GIsupposed to be seeing Chondrocal cinosis caused by calcium hydroxyapatite crystals [id number] M11.011 improved with the use of allopurino l Acute inju ry of kidney [id number] N17.0 will wait for levels from GI to be sure and then f/u with a kidney fluids [id number] Jaspreet Sebastian [facility] [address] [facility],[place] [address] 01/16/2023 11:06:50 01/20/2023 12:00:12 Pain of multiple joints 56309297 M25.541 will fu with full panel rheum work up Chondrocal cinosis caused by calcium hydroxyapatite crystals 06753960 M11.011 will set her up with the arthritis treatment [place] Menopausal flushing 1983 87844 N95.1 will trial paxil [id number] Jaspreet Sebastian [facility] [address] [facility],[place] [address] 02/20/2023 08:17:28 02/20/2023 15:43:49 Pain in left thumb 2363199018 397370 M79.645 will set up with XR to check on thumb Chondrocal cinosis caused by calcium hydroxyapatite crystals 96995902 M11.011 will set her up with the arthritis treatment [place] Pain of mu ltiple joints 06569247 M25.541 will fu with full panel rheum work up again [id number] Jaspreet Sebastian [facility] [address] [facility],[place] [address] 11/17/2023 09:25:49 11/17/2023 11:38:45 Depression screening [id number] Z13.31 SCREENING NEGATIVE Acute kidney injury 1466 9001 N17.0 resolved Atypical chest pain 1025 62051 R07.89 referral submitted [id number] Jaspreet Sebastian [facility] [address] [facility],[place] [address] 01/13/2025 11:27:02 01/13/2025 16:05:06 Persistent cough [id number] R05.3 018600 fu after xrstart on meds Health Concerns Section Related Observation LastModified by Organization Detai ls LastModified Time None Recorded Concern Status LastModified by Organization Details LastModified Time None Recorded Advance Directives Directive None Recorded Payers Insurance Date Sequence Insurance Name Policy Number Policy Joya Covered Member ID Joya Member ID Guarantor Name 01/13/2025 1 [facility] [id number] Jazz Mcfarlane [id number] Jazz Mcfarlane Notes Date Note Type Note Provider Name a nd Address Organization Details Recorded Time 2 text/html ROS as noted in the HPI 1 mo f/u anxiety: stable on paxil elevated liver levels/BENJIE? from Alex have her call to send me the resultsDr. Clarisa Feliciano through [facility] [place] will request from them to look at labs and determine if this accurate or notthey told her her LFTs and kidney function look bad in October but it was normal in October from our records? they want a renal US > [facility] if actually required stay off NSAIDS or APAP in the meantimeincrease fluids and will fu with patient when I get the results bursitis right shoulder: will try the diclofenac gel hot flashes mild; good on paxil TANYA RICKS [address] [place], [address], [facility] 02/21/2022 11:36:01 3 text/html ROS as noted in the HPI multiple joint pain diagnosed hydroxyapatite crystals in jointsagreed to arthritis treatment center referral for further work up and treatment planwill also up the allopurinol dosage in the meantimeseems to help the patientwill up the paxil for the flushing/hot flashes TANYA RICKS [address] [place], [address], [facility] 01/16/2023 11:36:35 3 text/html ROS as noted in the HPI f/u one month tele med phone callpatient consents to phone call new bone spur left thumb, same as one on right shoulderwill check to see if it is interfering with the joint will recheck another rheum work up and uric acid levels will fu with patient after bw and xr returns TANYA RICKS [address] [place], [address], [facility] 02/20/2023 10:25:18 4 text/html ROS as noted in the HPI f/u appt the patient reports that she has been doing good with the celebrexstarted by the arthritis doctor, working really well no other issues with the joint painthe patient has carpal tunnel injection, doing really well BENJIE resolved stopped allopurinol per arthritis doctor was taking her mom to see her cardiothey suggested she f/u with a cardio and cardiac testing given sig fam hx mom needed an open heart surgery (bypass) at 59 y/opatient is 58 y/ooccasional chest pain, no other symptomstolerates activity well agreed to referral, with scheduling a US and echo as well TANYA RICKS [address] [place], [address], [facility] 11/17/2023 09:44:23 5 text/html ROS as noted in the HPI c/o cough The patient is participating in this appointment via telemedicine communication with a phone call (audio) only.The patient consents to use of these platforms in place of an in-person appointment due to either patient being acutely ill (being in office would put our staff and our other patients at risk) or unable to make an in-person appointment due to either lack of transportation, severe medical condition, immunocompromised, etc.The appointment took place over a phone call (audio) due to patient's inability to access or use an audio and visual platform. the patient has had a hacking, dry coughthe patient reports that she noted the original symptoms started in Dec during day weekendshe feels like her chest is full, like she can't get anything up the patient does note it is triggered by dust, exercise, talking, and when she has hot flashes the patient reports more hot flashes are more frequentlythe patient sinuses are improving, they were very congested previouslythe patient has some coughing in bed lying flatthe patient doesn't get worsening coughing the night or in the morning when she wakes up the patient doesn't have chest pain, and nothing like activty ie walking around doing chores makes it worse the patient reports she has been using mucinex and robitussin, the mucinex doesn't work, the robitussin makes her tired the patient is coughing on the phone, it sounds like a dry raspy coughthe patient denies any productive cough at any point TANYA RICKS [address] [place], [address], [place] [facility] 01/13/2025 15:42:05 OBGyn Episode No OBEpisode recorded.
== END 2025-01-19 07:29 | disposition home or self-care (01) ==
LOC: HO.MAMMO 07:28
PROVIDERS: PCP Internal Medicine; Visit Provider Physician Assistant
DX: Z12.31 Encounter for screening mammogram for malignant neoplasm of breast (principal); R05.3 Chronic cough
CPT/HCPCS: 71046; 77063; 77067

== ENCOUNTER → 2025-01-19 08:42 | Outpatient (BNV) | payer OTHER, SELFPAY | PROVIDERS: PCP Internal Medicine; Visit Provider Radiology Diagnostic Radiology | DX: Z12.31 Encounter for screening mammogram for malignant neoplasm of breast (principal) | CPT/HCPCS: 77063; 77067 ==